=== PATIENT | female | born 2005 | race Caucasian/White ===

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

== ENCOUNTER → 2023-08-29 | Emergency (ER) | payer OTHER ==
[~2023-08-29] MED LIST: ONDANSETRON 4 MG (ODT) TAB ONE
--- OUTSIDE RECORDS SUMMARY | 2023-08-29 08:35 | XMS REPORT | Continuity of Care Document ---
Author Name Unknown Address [address] [facility] [place] [id number] [facility] thconnect Address [address] [facility] [address] [place] [address] Care Team Providers Care Concessions Manager Name Role Phone PCP, PATIENT DOES NOT HAVE A Primary Care Physic SLY Randall Attending Clinician UnavailSLY Wilhelm Attending Clinician UnavailMARTHA Cade Attending Clinician Unavailable BELIA OLIVEIRA Attending Clinician Unavailable LISSETT CANALES Attending Clinician Unavailable KILEY DYSON Attending Clinician Unavail Belia Golden MD Attending Clinician [phone] Doctor Unassigned, [place] Attending Clinician U norma Canales MD, Lissett Payne Attending Clinician [phone] Darlin De Los Santos MD Attending Clinician [phone] Martha Borjas PA-C Attending Clinician [phone] Kiley Baird Attending Clinician + Ultrasound, [facility] Attending Clinician Unavailmarj Elkins MD, Norman F Attending Clinician [phone], [facility] Attending Clinician Unavailab Ranjan LARIOS, Bellamy Attending Clinician + LISSETT CANALES Admitting Clinician Unavailable DARLIN DE LOS SANTOS Admitting Clinician Kristian Canales MD, Lissett Payne Admitting Clinician [phone] Darlin De Los Santos MD Admitting Clinician [phone] Payers Payer Name Policy Type Policy Number Effective Date Expirati on Date Source [employer] MEDICA[employer] [id number] 2019 00:00:00 [facility] [id number] 2016 00:00:00 Problems Condition Name Condition Details Condition Category Status Onset Date Resolution Date Last Treatment Date Treating Clinician Comments Source Normal labor Normal labor Disease Active 12-02 00:00: 00 [facility] 37 weeks gestation of 37 weeks gestation of Disease Active 12-02 00:00: 00 [facility] Liveborn infant, of leyva , born in hospital by vaginal delivery Liveborn , of leyva , born in hospital by vaginal delivery Disease Active 12-02 00:00: 00 [facility] Susceptibl e to varicella (non-immun e), currently Susceptibl e to varicella (non-immun e), currently Disease Active 2018-06 00:00: 00 [facility] Nausea and vomiting during Nausea and vomiting during Disease Active 2018-06 00:00: 00 [facility] Supervisio n of high-risk with insufficie nt care Supervisio n of high-risk with insufficie nt care Disease Active 2018-06 00:00: 00 [facility] Encounter for supervisio n of high-risk of young primigravi da Encounter for supervisio n of high-risk of young primigravi da Disease Active 2018-06 00:00: 00 [facility] Allergies, Adverse Reactions, Alerts Allergy Name Allergy Type Status Severity Reaction(s) Onset Date Inactive Date Treating Clinician Comments Source NO KNOWN ALLERGIE S Drug Class Active [facility] Social History Social Habit Start Date Stop Date Quantity Comments Source ASSERTION 2019-04-02 00:00:00 [facility] Sex Assigned At [facility] Exposure to SARS-CoV-2 (event) Not sure [facility] Tobacco use and exposure 2020-06-03 00:00:00 2020-06-03 00:00:00 Never used [facility] Alcohol intake 2020-06-03 00:00:00 2020-06-03 00:00:00 Ex-drinker (finding) [facility] Smoking Status Start Date Stop Date Source Never smoker [facility] Medications Ordered Medication Name Filled Medication Name Start Date Stop Date Current Medication? Ordering Clinician Indication Dosage Frequency Signature (SIG) Comments Components Source etonogestre L (NEXPLANON) implant 68 mg 2019-06 23:30: 00 06-03 22:19 :00 No [id number] 68mg [facility] etonogestre L (NEXPLANON) implant 68 mg 2019-06 23:30: 00 06-03 22:19 :00 No [id number] 68mg 68 mg, Subdermal, ONCE NOW, 1 dose, [facility] 06/03/20 at 1730, Routine
Use approved by: [facility]UR MATCHER [facility] etonogestre L (NEXPLANON) implant 68 mg 2019-06 23:30: 00 06-03 22:19 :00 No [id number] 68mg [facility] etonogestre L (NEXPLANON) implant 68 mg 2019-06 23:30: 00 06-03 22:19 :00 No [id number] 68mg 68 mg, Subdermal, ONCE NOW, 1 dose, [facility] 06/03/20 at 1730, Routine
Use approved by: [facility] vit calc,iron,f olic ( VITAMIN ORAL) 2019-06 21:54: 55 06-03 00:00 :00 No Take by mouth. [facility] vit calc,iron,f olic ( VITAMIN ORAL) 2019-06 21:54: 55 06-03 00:00 :00 No Take by mouth. [facility] vit calc,iron,f olic ( VITAMIN ORAL) 12-04 22:15: 34 Yes Take by mouth. [facility] vit calc,iron,f olic ( VITAMIN ORAL) 12-04 22:15: 34 Yes Take by mouth. [facility] vit calc,iron,f olic ( VITAMIN ORAL) 12-04 22:15: 34 Yes Take by mouth. [facility] vit calc,iron,f olic ( VITAMIN ORAL) 12-04 22:15: 34 Yes Take by mouth. [facility] rho(D) immune globulin (RHOGAM) syringe 300 mcg 12-03 08:25: 20 Yes 300ug 300 mcg, Intramuscu lar, ONCE, For 1 dose, Conditiona l, Routine [facility] HYDROcodone -acetaminop hen (NORCO 5) 5-325 mg tablet 1 tablet 12-03 08:25: 16 Yes 1{tbl} 1 tablet, Oral, Q6HPRN, Starting Kia 12/04/19 at 0325, Until Discontinu ed, Routine, Pain (scale 7-10) [facility] ibuprofen (IBU) tablet 600 mg 12-03 08:25: 16 Yes 600mg 600 mg, Oral, Q6HPRN, Starting Kia 12/04/19 at 0325, Until Discontinu ed, Routine, Pain (scale 4-6) [facility] acetaminoph en (TYLENOL) tablet 650 mg 12-03 08:25: 16 Yes 650mg 650 mg, Oral, Q6HPRN, Starting Kia 12/04/19 at 0325, Until Discontinu ed, Routine, Pain (scale 1-3) [facility] diphenhydrA MINE (BENADRYL) tablet 25 mg 12-03 08:25: 16 Yes 25mg 25 mg, Oral, Q6HPRN, Starting Kia 12/04/19 at 0325, Until Discontinu ed, Routine, Sleep, Itching [facility] ondansetron (ZOFRAN (PF)) injection 4 mg 12-03 08:25: 16 Yes 4mg 4 mg, Slow IV Push, Q8HPRN, Starting Kia 12/04/19 at 0325, Until Discontinu ed, Routine, Nausea and Vomiting (N/V) [facility] simethicone (GAS RELIEF (SIMETHICON E)) chewable tablet 160 mg 12-03 08:25: 16 Yes 160mg 160 mg, Oral, PC+HSPRN, Starting Sun12/04/19 at 0325, Until Discontinu ed, Routine, Gas [facility] docusate calcium (SURFAK) capsule 240 mg 12-03 08:25: 16 Yes 240mg 240 mg, Oral, QDAILYPRN, Starting Sun12/04/19 at 0325, Until Discontinu ed, Routine, Constipati on [facility] magnesium hydroxide (MILK OF MAGNESIA) 400 mg/5 mL suspension 30 mL 12-03 08:25: 16 Yes 30mL 30 mL, Oral, QDAILYPRN, Starting Sun12/04/19 at 0325, Until Discontinu ed, Routine, Constipati on [facility] benzocaine- menthol (DERMOPLAST ) 20-0.5 % topical spray 12-03 08:25: 16 Yes Topical, PRN, Starting Sun12/04/19 at 0325, Until Discontinu ed, Routine, Perineum discomfort [facility] vitamin w/FA tablet 12-03 00:00: 00 Yes [id number] 102 1{tbl} Take 1 tablet by mouth daily. [facility] docusate calcium 240 mg capsule 12-03 00:00: 00 Yes [id number] 102 240mg Take 1 capsule by mouth once daily as needed for Constipati on. [facility] ferrous sulfate 325 mg (65 mg iron) tablet 12-03 00:00: 00 Yes [id number] 102 325mg Take 1 tablet by mouth 2 (two) times daily. [facility] ibuprofen 600 mg tablet 12-03 00:00: 00 Yes [id number] 102 600mg Take 1 tablet by mouth every 6 (six) hours as needed (Pain). Take with food or milk. [facility] vitamin w/FA tablet 12-03 00:00: 00 Yes [id number] 102 1{tbl} Take 1 tablet by mouth daily. [facility] docusate calcium 240 mg capsule 12-03 00:00: 00 Yes [id number] 102 240mg Take 1 capsule by mouth once daily as needed for Constipati on. [facility] ferrous sulfate 325 mg (65 mg iron) tablet 12-03 00:00: 00 Yes [id number] 102 325mg Take 1 tablet by mouth 2 (two) times daily. [facility] ibuprofen 600 mg tablet 12-03 00:00: 00 Yes [id number] 102 600mg Take 1 tablet by mouth every 6 (six) hours as needed (Pain). Take with food or milk. [facility] vitamin w/FA tablet 12-03 00:00: 00 Yes [id number] 102 1{tbl} Take 1 tablet by mouth daily. [facility] docusate calcium 240 mg capsule 12-03 00:00: 00 Yes [id number] 102 240mg Take 1 capsule by mouth once daily as needed for Constipati on. [facility] ferrous sulfate 325 mg (65 mg iron) tablet 12-03 00:00: 00 Yes [id number] 102 325mg Take 1 tablet by mouth 2 (two) times daily. [facility] ibuprofen 600 mg tablet 12-03 00:00: 00 Yes [id number] 102 600mg Take 1 tablet by mouth every 6 (six) hours as needed (Pain). Take with food or milk. [facility] ibuprofen 600 mg tablet 12-03 00:00: 00 Yes [id number] 102 600mg Take 1 tablet by mouth every 6 (six) hours as needed (Pain). Take with food or milk. [facility] ibuprofen 600 mg tablet 12-03 00:00: 00 Yes [id number] 102 600mg Take 1 tablet by mouth every 6 (six) hours as needed (Pain). Take with food or milk. [facility] vitamin w/FA tablet 12-03 00:00: 00 06-03 00:00 :00 No [id number] 102 1{tbl} Take 1 tablet by mouth daily. [facility] docusate calcium 240 mg capsule 12-03 00:00: 06-03 00:00 :00 No [id number] 102 240mg Take 1 capsule by mouth once daily as needed for Constipati on. [facility] ferrous sulfate 325 mg (65 mg iron) tablet 12-03 00:00: 06-03 00:00 :00 No [id number] 102 325mg Take 1 tablet by mouth 2 (two) times daily. [facility] vitamin w/FA tablet 12-03 00:00: 06-03 00:00 :00 No [id number] 102 1{tbl} Take 1 tablet by mouth daily. [facility] docusate calcium 240 mg capsule 12-03 00:00: 06-03 00:00 :00 No [id number] 102 240mg Take 1 capsule by mouth once daily as needed for Constipati on. [facility] ferrous sulfate 325 mg (65 mg iron) tablet 12-03 00:00: 00 06-03 00:00 :00 No [id number] 102 325mg Take 1 tablet by mouth 2 (two) times daily. [facility] LR 1000 mL + oxytocin 20 units IV Solution 12-02 23:00: 00 12-02 23:00 :00 No at 125 mL/hr, IV Infusion, ONCE, 1 dose, Sun12/03/19 at 1800, Routine [facility] lactated ringers IV infusion 500 mL 12-02 15:30: 00 12-02 14:45 :00 No 500mL at 999 mL/hr, 500 mL, IV Infusion, ONCE, 1 dose, Sun12/03/19 at 1030, Routine [facility] lactated ringers IV infusion 500 mL 12-02 14:22: 43 12-02 15:45 :00 No 500mL at 999 mL/hr, 500 mL, IV Infusion, PRN - SEE INSTRUCTIO NS, 1 dose, Starting Sun12/03/19 at 0922, Until Discontinu ed, Routine [facility] LR 1000 mL + oxytocin 20 units IV Solution 12-02 12:53: 34 12-03 08:25 :21 No 2mU/min at 6-120 mL/hr, IV Infusion, TITRATE, Starting Sun12/03/19 at 0753, Until Kia 12/04/19 at 0325, ALYSHA [facility] vit calc,iron,f olic ( VITAMIN ORAL) 11-28 10:47: 48 Yes Take by mouth. [facility] terbutaline (BRETHINE) injection 0.25 mg 11-28 09:20: 00 11-28 09:24 :00 No .25mg 0.25 mg, Subcutaneo us, ONCE, 1 dose, 11/29/19 at 0430, Routine [facility] proMETHazin e (PHENERGAN) injection 25 mg 11-28 08:30: 00 11-28 07:34 :00 No 25mg 25 mg, Intramuscu lar, ONCE, 1 dose, 11/29/19 at 0330, Routine [facility] terbutaline (BRETHINE) injection 0.25 mg 11-28 08:00: 00 11-28 08:19 :00 No .25mg 0.25 mg, Subcutaneo us, ONCE, 1 dose, 11/29/19 at 0300, Routine [facility] terbutaline (BRETHINE) injection 0.25 mg 11-28 07:30: 00 11-28 07:33 :00 No .25mg 0.25 mg, Subcutaneo us, ONCE, 1 dose, 11/29/19 at 0230, Routine [facility] meperidine (DEMEROL) injection 50 mg 11-28 07:30: 00 11-28 07:40 :00 No 50mg 50 mg, Intramuscu lar, ONCE, 1 dose, 11/29/19 at 0230, Routine
Enter indication for use: [facility] vit calc,iron,f olic ( VITAMIN ORAL) 10-12 16:14: 50 Yes Take by mouth. [facility] vit calc,iron,f olic ( VITAMIN ORAL) 10-12 16:14: 50 Yes Take by mouth. [facility] vit calc,iron,f olic ( VITAMIN ORAL) 10-12 16:14: 50 Yes Take by mouth. [facility] vit calc,iron,f olic ( VITAMIN ORAL) 10-12 16:14: 50 Yes Take by mouth. [facility] vit calc,iron,f olic ( VITAMIN ORAL) 10-12 16:14: 50 Yes Take by mouth. [facility] vit calc,iron,f olic ( VITAMIN ORAL) 10-12 16:14: 50 Yes Take by mouth. [facility] vit calc,iron,f olic ( VITAMIN ORAL) 10-12 16:14: 50 Yes Take by mouth. [facility] vit calc,iron,f olic ( VITAMIN ORAL) 10-12 16:14: 50 Yes Take by mouth. [facility] proMETHazin e 25 mg tablet 2018-06 00:00: 00 Yes [id number] 25mg Take 1 tablet by mouth every 6 (six) hours as needed for Nausea and Vomiting (N/V). [facility] proMETHazin e 25 mg tablet 2018-06 00:00: 00 Yes [id number] 25mg Take 1 tablet by mouth every 6 (six) hours as needed for Nausea and Vomiting (N/V). [facility] proMETHazin e 25 mg tablet 2018-06 00:00: 00 Yes [id number] 25mg Take 1 tablet by mouth every 6 (six) hours as needed for Nausea and Vomiting (N/V). [facility] proMETHazin e 25 mg tablet 2018-06 00:00: 00 Yes [id number] 25mg Take 1 tablet by mouth every 6 (six) hours as needed for Nausea and Vomiting (N/V). [facility] proMETHazin e 25 mg tablet 2018-06 00:00: 00 Yes [id number] 25mg Take 1 tablet by mouth every 6 (six) hours as needed for Nausea and Vomiting (N/V). [facility] proMETHazin e 25 mg tablet 2018-06 00:00: 00 Yes [id number] 25mg Take 1 tablet by mouth every 6 (six) hours as needed for Nausea and Vomiting (N/V). [facility] proMETHazin e 25 mg tablet 2018-06 00:00: 00 Yes [id number] 25mg Take 1 tablet by mouth every 6 (six) hours as needed for Nausea and Vomiting (N/V). [facility] proMETHazin e 25 mg tablet 2018-06 00:00: 00 Yes [id number] 25mg Take 1 tablet by mouth every 6 (six) hours as needed for Nausea and Vomiting (N/V). [facility] proMETHazin e 25 mg tablet 2018-06 00:00: 00 Yes [id number] 25mg Take 1 tablet by mouth every 6 (six) hours as needed for Nausea and Vomiting (N/V). [facility] proMETHazin e 25 mg tablet 2018-06 00:00: 00 Yes [id number] 25mg Take 1 tablet by mouth every 6 (six) hours as needed for Nausea and Vomiting (N/V). [facility] proMETHazin e 25 mg tablet 2018-06 00:00: 00 Yes [id number] 25mg Take 1 tablet by mouth every 6 (six) hours as needed for Nausea and Vomiting (N/V). [facility] proMETHazin e 25 mg tablet 2018-06 00:00: 00 Yes [id number] 25mg Take 1 tablet by mouth every 6 (six) hours as needed for Nausea and Vomiting (N/V). [facility] proMETHazin e 25 mg tablet 2018-06 00:00: 00 Yes [id number] 25mg Take 1 tablet by mouth every 6 (six) hours as needed for Nausea and Vomiting (N/V). [facility] proMETHazin e 25 mg tablet 2018-06 00:00: 00 Yes [id number] 25mg Take 1 tablet by mouth every 6 (six) hours as needed for Nausea and Vomiting (N/V). [facility] proMETHazin e 25 mg tablet 2018-06 00:00: 00 Yes [id number] 25mg Take 1 tablet by mouth every 6 (six) hours as needed for Nausea and Vomiting (N/V). [facility] proMETHazin e 25 mg tablet 2018-06 00:00: 00 Yes [id number] 25mg Take 1 tablet by mouth every 6 (six) hours as needed for Nausea and Vomiting (N/V). [facility] proMETHazin e 25 mg tablet 2018-06 00:00: 00 Yes [id number] 25mg Take 1 tablet by mouth every 6 (six) hours as needed for Nausea and Vomiting (N/V). [facility] proMETHazin e 25 mg tablet 2018-06 00:00: 00 Yes [id number] 25mg Take 1 tablet by mouth every 6 (six) hours as needed for Nausea and Vomiting (N/V). [facility] proMETHazin e 25 mg tablet 2018-06 00:00: 00 12-03 00:00 :00 No [id number] 25mg Take 1 tablet by mouth every 6 (six) hours as needed for Nausea and Vomiting (N/V). [facility] NAPROXEN 375 mg tablet 2017-06 00:00: 00 Yes TAKE 1 TABLET BY MOUTH TWICE A DAY WITH MEALS [facility] NAPROXEN 375 mg tablet 2017-06 00:00: 00 Yes TAKE 1 TABLET BY MOUTH TWICE A DAY WITH MEALS [facility] NAPROXEN 375 mg tablet 2017-06 00:00: 00 Yes TAKE 1 TABLET BY MOUTH TWICE A DAY WITH MEALS [facility] NAPROXEN 375 mg tablet 2017-06 00:00: 00 Yes TAKE 1 TABLET BY MOUTH TWICE A DAY WITH MEALS [facility] NAPROXEN 375 mg tablet 2017-06 00:00: 00 Yes TAKE 1 TABLET BY MOUTH TWICE A DAY WITH MEALS [facility] NAPROXEN 375 mg tablet 2017-06 00:00: 00 Yes TAKE 1 TABLET BY MOUTH TWICE A DAY WITH MEALS [facility] NAPROXEN 375 mg tablet 2017-06 00:00: 00 Yes TAKE 1 TABLET BY MOUTH TWICE A DAY WITH MEALS [facility] NAPROXEN 375 mg tablet 2017-06 00:00: 00 Yes TAKE 1 TABLET BY MOUTH TWICE A DAY WITH MEALS [facility] NAPROXEN 375 mg tablet 2017-06 00:00: 00 Yes TAKE 1 TABLET BY MOUTH TWICE A DAY WITH MEALS [facility] NAPROXEN 375 mg tablet 2017-06 00:00: 00 10-12 00:00 :00 No TAKE 1 TABLET BY MOUTH TWICE A DAY WITH MEALS [facility] Vital Signs Vital Name Observation Time Observation Value Comments S john Systolic blood pressure 2020-06-03 21:31:00 118 mm[Hg] [facility] Diastolic blood pressure 2020-06-03 21:31:00 67 mm[Hg] [facility] Heart rate 2020-06-03 21:31:00 101 /min [facility] Body temperature 2020-06-03 21:31:00 36.83 Rachna [facility] Respiratory rate 2020-06-03 21:31:00 16 /min [facility] Body height 2020-06-03 21:31:00 160 cm [facility] Body weight 2020-06-03 21:31:00 60.691 kg [facility] BMI 2020-06-03 21:31:00 23.70 kg/m2 [facility] Heart rate 2019-12-05 13:00:00 57 /min [facility] Body temperature 2019-12-05 13:00:00 36.72 Rachna [facility] Respiratory rate 2019-12-05 13:00:00 16 /min [facility] Oxygen saturation in Arterial blood by Pulse oximetry 2019-12-05 13:00:00 100 /min [facility] Systolic blood pressure 2019-12-05 05:00:00 106 mm[Hg] [facility] Diastolic blood pressure 2019-12-05 05:00:00 60 mm[Hg] [facility] Body height 2019-12-03 10:45:00 160 cm [facility] Body weight 2019-12-03 10:45:00 68.493 kg [facility] BMI 2019-12-03 10:45:00 26.75 kg/m2 [facility] Heart rate 2019-11-29 10:15:00 105 /min [facility] Systolic blood pressure 2019-11-29 10:00:00 118 mm[Hg] [facility] Diastolic blood pressure 2019-11-29 10:00:00 62 mm[Hg] [facility] Oxygen saturation in Arterial blood by Pulse oximetry 2019-11-29 09:45:00 100 /min [facility] Body temperature 2019-11-29 07:04:00 36.67 Rachna [facility] Respiratory rate 2019-11-29 07:04:00 18 /min [facility] Body height 2019-11-29 07:04:00 160 cm [facility] Body weight 2019-11-29 07:04:00 68.402 kg [facility] BMI 2019-11-29 07:04:00 26.71 kg/m2 [facility] Systolic blood pressure 2019-11-20 16:30:00 111 mm[Hg] [facility] Diastolic blood pressure 2019-11-20 16:30:00 62 mm[Hg] [facility] Heart rate 2019-11-20 16:30:00 99 /min [facility] Body temperature 2019-11-20 16:30:00 36.72 Rachna [facility] Respiratory rate 2019-11-20 16:30:00 18 /min [facility] Body height 2019-11-20 16:30:00 160 cm [facility] Body weight 2019-11-20 16:30:00 66.679 kg [facility] BMI 2019-11-20 16:30:00 26.04 kg/m2 [facility] Systolic blood pressure 2019-10-13 16:11:00 107 mm[Hg] [facility] Diastolic blood pressure 2019-10-13 16:11:00 68 mm[Hg] [facility] Heart rate 2019-10-13 16:11:00 81 /min Un[facility] Body temperature 2019-10-13 16:11:00 36.89 Rachna [facility] Respiratory rate 2019-10-13 16:11:00 18 /min [facility] Body height 2019-10-13 16:11:00 160 cm [facility] Body weight 2019-10-13 16:11:00 63.957 kg [facility] BMI 2019-10-13 16:11:00 24.98 kg/m2 [facility] Systolic blood pressure 2019-09-30 15:58:00 98 mm[Hg] [facility] Diastolic blood pressure 2019-09-30 15:58:00 65 mm[Hg] [facility] Heart rate 2019-09-30 15:58:00 80 /min [facility] Body temperature 2019-09-30 15:58:00 36.44 Rachna [facility] Respiratory rate 2019-09-30 15:58:00 16 /min [facility] Body height 2019-09-30 15:58:00 160 cm [facility] Body weight 2019-09-30 15:58:00 63.107 kg [facility] BMI 2019-09-30 15:58:00 24.64 kg/m2 [facility] Systolic blood pressure 2019-09-16 15:53:00 129 mm[Hg] [facility] Diastolic blood pressure 2019-09-16 15:53:00 67 mm[Hg] [facility] Heart rate 2019-09-16 15:53:00 76 /min [facility] Body temperature 2019-09-16 15:53:00 36.5 Rachna [facility] Respiratory rate 2019-09-16 15:53:00 16 /min [facility] Body height 2019-09-16 15:53:00 160 cm [facility] Body weight 2019-09-16 15:53:00 63.22 kg [facility] BMI 2019-09-16 15:53:00 24.69 kg/m2 [facility] Systolic blood pressure 2019-08-26 17:00:00 114 mm[Hg] [facility] Diastolic blood pressure 2019-08-26 17:00:00 59 mm[Hg] [facility] Heart rate 2019-08-26 17:00:00 107 /[facility] Body temperature 2019-08-26 17:00:00 36.28 Rachna [facility] Respiratory rate 2019-08-26 17:00:00 16 /min [facility] Body height 2019-08-26 17:00:00 160 cm [facility] Body weight 2019-08-26 17:00:00 59.194 kg [facility] BMI 2019-08-26 17:00:00 23.12 kg/m2 [facility] Systolic blood pressure 2019-07-29 22:01:00 102 mm[Hg] [place] [facility] Diastolic blood pressure 2019-07-29 22:01:00 64 mm[Hg] [place] [facility] Heart rate 2019-07-29 22:01:00 73 /min [facility] Body temperature 2019-07-29 22:01:00 36.17 Rachna [facility] Respiratory rate 2019-07-29 22:01:00 16 /min [facility] Body height 2019-07-29 22:01:00 160 cm [facility] Body weight 2019-07-29 22:01:00 58.684 kg [facility] BMI 2019-07-29 22:01:00 22.92 kg/m2 [facility] Procedures Procedure Date / Time Performed Performing Clinician Source POCT TEST 2020-06-03 21:22:00 AdumBelia [facility] ASSIGNMENT OF BENEFITS 2020-06-03 21:05:52 Docto r Unassigned, [place] [facility] CBC WITH DIFFERENTIAL 2019-12-04 09:27:00 Lissett Canales [facility] VENOUS CORD GAS 2019-12-03 22:51:00 Lissett Canales [facility] HB ABO GROUPING 2019-12-03 13:45:00 Lissett Canales [facility] RHO (D) IMMUNE GLOBULIN 2019-12-03 13:45:00 Lissett Canales [facility] CBC WITH DIFFERENTIAL 2019-12-03 13:38:00 Lissett Canales [facility] HEPATITIS B SURFACE ANTIGEN 2019-12-03 13:38:00 Trever Lissett Payne [facility] ADC OR AFSHAN ONLY - RPR 2019-12-03 13:38:00 Trever Lissett Elmer [facility] HIV 1/2 AG-AB WITH REFLEX 2019-12-03 13:38:00 CanalesLissett [facility] ASSIGNMENT OF BENEFITS 2019-12-03 10:27:24 Docto r Unassigned, [place] [facility] NOTICE OF PRIVACY PRACTICES 2019-12-03 10:23:31 Doctor Unassigned, [place] [facility] CONSENT/REFUSAL FOR DIAGNOSIS AND TREATMENT 2019-12-03 10:23:16 Doctor Unassigned, [place] [facility] ASSIGNMENT OF BENEFITS 2019-11-29 06:47:19 Docto r Unassigned, [place] [facility] CONSENT/REFUSAL FOR DIAGNOSIS AND TREATMENT 2019-11-29 06:47:04 Doctor Unassigned, [place] [facility] NOTICE OF PRIVACY PRACTICES 2019-11-29 06:46:46 Doctor Unassigned, [place] [facility] DME/SUPPLY JUSTIFICATION 2019-11-25 05:01:00 Doc tor Unassigned, [place] [facility] POCT URINALYSIS W/O SPECIFIC GRAVITY 2019-11-20 00:00:00 Martha Borjas [facility] DME/SUPPLY JUSTIFICATION 2019-10-21 05:01:00 Doc tor Unassigned, [place] [facility] POCT URINALYSIS W/O SPECIFIC GRAVITY 2019-10-13 00:00:00 Trever Lissett Elmer [facility] TDAP (ADACEL) IMMUNIZATION 2019-09-30 16:20:58 Kiley Dyson [facility] POCT URINALYSIS 2019-09-30 16:02:00 Kiley Dyson [facility] SECOND AND THIRD TRIMESTER ULTRASOUND 2019-09-17 15:28:00 Kiley Dyson [facility] POCT URINALYSIS 2019-09-16 15:58:00 Kiley Dyson [facility] POCT URINALYSIS 2019-08-26 18:01:00 Kiley Dyson [facility] POCT URINALYSIS 2019-07-29 22:03:00 Kiley Dyson [facility] Encounters Start Date/Time End Date/Time Encounter Type Admission Type Attending Clinicians Care Facility Care Department Encounter ID Source 2021-04-22 00:17:49 Outpatient P COMB YANDY [id number] [facility] 2021-04-21 23:49:08 Outpatient P COMB YANDY [id number] [facility] 2022-12-07 09:00:00 2022-12-07 09:00:00 Outpatient R SLY CISNEROS CHERYAL [facility] [id number] [facility] 2022-11-23 15:00:00 2022-11-23 15:00:00 Outpatient R SLY CISNEROS CHERYAL [facility] [id number] [facility] 2021-10-26 15:30:00 2021-10-26 15:30:00 Outpatient R MARTHA BORJAS [facility] [id number] [facility] 2021-09-30 15:00:00 2021-09-30 15:00:00 Outpatient R BELIA OLIVEIRA [facility] [id number] [facility] 2021-08-08 14:30:00 2021-08-08 14:30:00 Outpatient R MARTHA BORJAS [facility] [id number] [facility] 2021-04-18 15:00:00 2021-04-18 15:00:00 Outpatient R LISSETT CANALES [facility] [id number] [facility] 2021-02-16 09:30:00 2021-02-16 09:30:00 Outpatient R KILEY DYSON [facility] [id number] [facility] 2020-06-03 15:06:22 2020-06-03 16:06:02 Office Visit Belia Oliveira [facility] 1.2.840.114 350.1.13.10 4.2.7.2.[id number] [facility] 2020-06-03 15:30:00 2020-06-03 15:30:00 Outpatient R BELIA OLIVEIRA [facility] [id number] [facility] 2020-06-03 00:00:00 2020-06-03 00:00:00 Orders Only Doctor Unassigned, [place] [facility] 1.2.840.114 350.1.13.10 4.2.7.2.[id number] [facility] 2020-06-03 00:00:00 2020-06-03 00:00:00 Letter (Out) Doctor Unassigned, [place] [facility] 1.2.840.114 350.1.13.10 4.2.7.2.[id number] [facility] 2019-12-03 05:24:00 2019-12-05 17:00:00 Hospital Encounter Lissett Canales [facility] 1.2.840.114 350.1.13.10 4.2.7.2.[id number] [facility] 2019-12-04 16:00:00 2019-12-04 16:00:00 Outpatient R LISSETT CANALES [facility] [id number] [facility] 2019-11-29 01:47:00 2019-11-29 05:46:00 Hospital Encounter ChristopherpedritoDarlin [facility] 1.2.840.114 350.1.13.10 4.2.7.2.[id number] [facility] 2019-11-29 00:00:00 2019-11-29 00:00:00 Orders Only Doctor Unassigned, [place] [facility] 1.2.840.114 350.1.13.10 4.2.7.2.[id number] [facility] 2019-11-25 00:00:00 2019-11-25 00:00:00 Orders Only Doctor Unassigned, [place] [facility] 1.2.840.114 350.1.13.10 4.2.7.2.[id number] [facility] 2019-11-20 11:18:15 2019-11-20 11:51:32 Routine Visit Martha Borjas [facility] 1.2.840.114 350.1.13.10 4.2.7.2.[id number] [facility] 2019-11-20 11:30:00 2019-11-20 11:30:00 [facility]patient [facility] [id number] [facility] 2019-10-27 16:00:00 2019-10-27 16:00:00 [facility] [id number] [facility] 2019-10-27 10:06:13 2019-10-27 10:36:13 [facility].114 350.1.13.10 4.2.7.2.[id number] [facility] 2019-10-22 00:00:00 2019-10-22 00:00:00 Telephone Lissett Canales [facility] 1.2.840.114 350.1.13.10 4.2.7.2.[id number] [facility] 2019-10-21 00:00:00 2019-10-21 00:00:00 Orders Only Doctor Unassigned, [place] [facility] 1.2.840.114 350.1.13.10 4.2.7.2.[id number] [facility] 2019-10-20 00:00:00 2019-10-20 00:00:00 Telephone Lissett Canales [facility] 1.2.840.114 350.1.13.10 4.2.7.2.[id number] [facility] 2019-10-13 15:15:00 2019-10-13 15:15:00 Outpatient R KILEY DYSON [facility] [id number] [facility] 2019-10-13 13:45:00 2019-10-13 13:45:00 Outpatient R KILEY DYSON [facility] [id number] [facility] 2019-10-13 11:05:01 2019-10-13 11:24:53 Initial Visit Lissett Canales [facility] 1.2.840.114 350.1.13.10 4.2.7.2.[id number] [facility] 2019-10-13 11:00:00 2019-10-13 11:00:00 Outpatient R LISSETT CANALES [facility] [id number] [facility] 2019-10-13 00:00:00 2019-10-13 00:00:00 Telephone Kiley Dyson [facility] 1.2.840.114 350.1.13.10 4.2.7.2.[id number] [facility] 2019-09-30 10:46:03 2019-09-30 11:25:56 Routine Visit Kiley Dyson [facility] 1.2.840.114 350.1.13.10 4.2.7.2.[id number] [facility] 2019-09-30 10:45:00 2019-09-30 10:45:00 Outpatient R KILEY DYSON [facility] [id number] [facility] 2019-09-18 00:00:00 2019-09-18 00:00:00 Abstract Kiley Dyson [facility] CHILD [facility] 1.2840.114 350.1.13.10 4.2.7.2.[id number] [facility] 2019-09-17 09:56:05 2019-09-17 10:26:05 Senior Sales Operations Manager Visit Ultrasound, Norman Dowling [facility]ILD [facility] 1.0.114 350.1.13.10 4.2.7.2.[id number] [facility] 2019-09-17 10:00:00 2019-09-17 10:00:00 Outpatient P [facility] [id number] [facility] 2019-09-16 10:44:24 2019-09-16 11:22:05 Routine Visit Kiley Dyson [facility]ILD [facility] 1.0.114 350.1.13.10 4.2.7.2.[id number] [facility] 2019-09-16 10:45:00 2019-09-16 10:45:00 Outpatient R KILEY DYSON [facility] [id number] [facility] 2019-08-27 00:00:00 2019-08-27 00:00:00 Abstract Kiley Dyson [facility]ILD [facility] 1.0.114 350.1.13.10 4.2.7.2.[id number] [facility] 2019-08-26 13:54:11 2019-08-26 14:41:10 Senior Sales Operations Manager [facility] Kiley Dyson Gay [facility] 1.840.114 350.1.13.10 4.2.7.2.[id number] [facility] 2019-08-26 10:51:50 2019-08-26 11:16:28 Routine Visit Kiley Dyson Gay [facility]ILD [facility] 1..840.114 350.1.13.10 4.2.7.2.[id number] [facility] 2019-08-26 10:45:00 2019-08-26 10:45:00 Outpatient R KILEY DYSON [facility] [id number] [facility] 2019-07-29 15:51:59 2019-07-29 16:19:18 Routine Visit Kiley Dyson [facility]ILD [facility] 1..840.114 350.1.13.10 4.2.7.2.[id number] [facility] Results Test Description Test Time Test Comments Results Result Co mments Source [facility] [id number] 21:22:00* Test Item Value Reference Range Interpretation Comme nts POCT PREG (test code = 1605) Positive On board controls acceptable with C Line (test code = 3574) Yes POCT PREG LOT # (test code = 3575) POCT PREG TEST DATE (test code = 3576) DENA (test code = DENA) accurate developme nt and interpretation of all internal controlsRecent on 06/02/20 [facility] WITH [id number] 12:11:00* Test Item Value Reference Range Interpretation Comme nts WBC (test code = 6690-2) See_Comment H [Automated message] The system which generated this result transmitted reference range: 4.50 - 13.50 10*3/?L. The reference range was not used to interpret this result as normal/abnormal. RBC (test code = 789-8) See_Comment L [Automated message] The system which generated this result transmitted reference range: 4.10 - 5.10 10*6/?L. The reference range was not used to interpret this result as normal/abnormal. HGB (test code = 718-7) 11.4 g/dL 12-16 L HCT (test code = 4544-3) 32.6 % 36-45 L MCV (test code = 787-2) 92.1 fL 78-95 MCH (test code = 785-6) 32.2 pg 26-32 H MCHC (test code = 786-4) 35.0 g/dL 32-36 RDW-SD (test code = 59957-4) 40.6 fL 38.5-49 RDW-CV (test code = 788-0) 12.2 % 11.5-14 PLT (test code = 777-3) See_Comment [Automated message] The system which generated this result transmitted reference range: 135 - 361 10*3/?L. The reference range was not used to interpret this result as normal/abnormal. MPV (test code = 93175-6) 11.0 fL 9.4-13.3 NRBC/100 WBC (test code = 6997193815) See_Comment [Automated message] The system which generated this result transmitted reference range: 0.0 - 10.0 /100 WBCs. The reference range was not used to interpret this result as normal/abnormal. NRBC x10^3 (test code = 6112629508) <0.01 See_Comment [Automated message] The system which generated this result transmitted reference range: 10*3/?L. The reference range was not used to interpret this result as normal/abnormal. GRAN MAT (NEUT) % (test code = 770-8) 71.2 % IMM GRAN % (test code = 5110405921) 1.10 % LYMPH % (test code = 736-9) 19.6 % MONO % (test code = 5905-5) 7.1 % EOS % (test code = 713-8) 0.8 % BASO % (test code = 706-2) 0.2 % GRAN MAT x10^3(ANC) (test code = 8288657612) 10.06 10*3/uL 1.5-10.3 IMM GRAN x10^3 (test code = 3849888512) 0.16 10*3/uL 0-0.06 H LYMPH x10^3 (test code = 731-0) 2.77 10*3/uL 0.7-7.4 MONO x10^3 (test code = 742-7) 1.01 10*3/uL 0-0.5 H EOS x10^3 (test code = 711-2) 0.12 10*3/uL 0-0.4 BASO x10^3 (test code = 704-7) 0.03 10*3/uL 0-0.1 Lab Interpretation (test code = 75955-7) Abnormal [facility]) IMMUNE [id number] 09:15:54* Test Item Value Reference Range Interpretation Comme nts RHIG CANDIDATE? (test code = 5055) No- see comment Patient is not a candidate for RhIg- Patient is Rh Positive.Performed at [facility] Laboratory Services - [facility] Blood [address] [place] [address]Ucsr Free: [phone] No. [id number] [facility]AD OR AFSHAN ONLY - [id number] 04:13:00* Test Item Value Reference Range Interpretation Comme nts RPR (Qualitative) (test code = 45824-1) Nonreactive Nonreactive Lab Interpretation (test cod e = 00149-6) Normal [facility] Cord [id number] 23:13:00* Test Item Value Reference Range Interpretation Comme nts VENOUS BASE EXCESS, CORD (test code = 6749085356) mEq/L VENOUS PH, CORD (test code = 1525098417) 7.25-7.45 VENOUS PC02, CORD (test code = 4851742474) See_Comment [Automated messa ge] The system which generated this result transmitted reference range: 27 - 49 mmHg. The reference range was not used to interpret this result as normal/abnormal. VENOUS PO2, CORD (test code = 4899334255) See_Comment [Automated me ssage] The system which generated this result transmitted reference range: 17 - 41 mmHg. The reference range was not used to interpret this result as normal/abnormal. VENOUS BICARBONATE, CORD (test code = 4973571448) See_Comment [Automated messa ge] The system which generated this result transmitted reference range: 12 - 29 mEq/L. The reference range was not used to interpret this result as normal/abnormal. [facility] HospitalAr[facility]ial Cord [id number] 23:12:00* Test Item Value Reference Range Interpretation Comme nts BASE EXCESS, CORD (test code = 6368706615) mEq/L AC PH, CORD (BEAKER) (test code = 9948391966) 7.18-7.38 L PC02, CORD (test code = 4875013039) See_Comment [Automated messa ge] The system which generated this result transmitted reference range: 32 - 66 mmHg. The reference range was not used to interpret this result as normal/abnormal. PO2, CORD (test code = 2526291183) See_Comment H [Automated messa ge] The system which generated this result transmitted reference range: 10 - 30 mmHg. The reference range was not used to interpret this result as normal/abnormal. BICARBONATE, CORD (test code = 8414950258) See_Comment [Automated me ssage] The system which generated this result transmitted reference range: 17 - 27 mEq/L. The reference range was not used to interpret this result as normal/abnormal. Lab Interpretation (test code = 17774-6) Abnormal [facility] HospitalHepatitis B Surface [id number] 20:15:00 * Test Item Value Reference Range Interpretation Comme nts HBsAg Semi-Quantitative (dash t code = 5195-3) Negative Negative [facility]HIV 1/2 AG-AB WITH [id number] 15:37:00* Test Item Value Reference Range Interpretation Comme nts HIV Semi-quantitative (test code = 10520-0) Negative Negative DENA (test code = DENA) Non-reactive for HIV-1 antigen and HIV-1/HIV-2 antibodies. ?No laboratory evidence of HIV infection. ?Repeat in 2-4 weeks if acute HIV infection is suspected. [facility] HospitalType and Screen - ONCE [id number] 15:12:43 * Test Item Value Reference Range Interpretation Comme nts ABO & RH (test code = 20) O Positive Performed at [facility] Laboratory Services - [facility] Blood [address] [place], [place] [id number] Free: [phone] No. [id number] IAT (test code = 1185) Negative Performed at [facility] Laboratory [facility] - [facility] Blood [address] [place], [place] [id number] Free: [phone] No. [id number] [facility] WITH [id number] 14:18:00* Test Item Value Reference Range Interpretation Comme nts WBC (test code = 6690-2) See_Comment [Automated messa ge] The system which generated this result transmitted reference range: 4.50 - 13.50 10*3/?L. The reference range was not used to interpret this result as normal/abnormal. RBC (test code = 789-8) See_Comment L [Automated messa ge] The system which generated this result transmitted reference range: 4.10 - 5.10 10*6/?L. The reference range was not used to interpret this result as normal/abnormal. HGB (test code = 718-7) 11.8 g/dL 12-16 L HCT (test code = 4544-3) 32.7 % 36-45 L MCV (test code = 787-2) 90.6 fL 78-95 MCH (test code = 785-6) 32.7 pg 26-32 H MCHC (test code = 786-4) 36.1 g/dL 32-36 H RDW-SD (test code = 79750-8) 39.8 fL 38.5-49 RDW-CV (test code = 788-0) 12.3 % 11.5-14 PLT (test code = 777-3) See_Comment [Automated messa ge] The system which generated this result transmitted reference range: 135 - 361 10*3/?L. The reference range was not used to interpret this result as normal/abnormal. MPV (test code = 90411-0) 10.6 fL 9.4-13.3 NRBC/100 WBC (test code = 2788448205) See_Comment [Automated me ssage] The system which generated this result transmitted reference range: 0.0 - 10.0 /100 WBCs. The reference range was not used to interpret this result as normal/abnormal. NRBC x10^3 (test code = 7682695639) <0.01 See_Comment [Automated messa ge] The system which generated this result transmitted reference range: 10*3/?L. The reference range was not used to interpret this result as normal/abnormal. GRAN MAT (NEUT) % (test code = 770-8) 67.7 % IMM GRAN % (test code = 4747281498) 2.00 % LYMPH % (test code = 736-9) 23.0 % MONO % (test code = 5905-5) 6.0 % EOS % (test code = 713-8) 0.9 % BASO % (test code = 706-2) 0.4 % GRAN MAT x10^3(ANC) (test code = 1378054475) 7.56 10*3/uL 1.5-10.3 IMM GRAN x10^3 (test code = 9834900361) 0.22 10*3/uL 0-0.06 H LYMPH x10^3 (test code = 731-0) 2.57 10*3/uL 0.7-7.4 MONO x10^3 (test code = 742-7) 0.67 10*3/uL 0-0.5 H EOS x10^3 (test code = 711-2) 0.10 10*3/uL 0-0.4 BASO x10^3 (test code = 704-7) 0.04 10*3/uL 0-0.1 Lab Interpretation (test code = 33089-7) Abnormal [facility] URINALYSIS W/O SPECIFIC [id number] 16:37:00* Test Item Value Reference Range Interpretation Comme nts POCT PH U (test code = 3254) N/A 5-8 POCT U LEUK EST (test code = 3263) N/A Negative - Negative POCT U NIT (test code = 3262) N/A Negative - Negati ve POCT U PROT (test code = 3259) Negative Negative - Negat cyrus POCT U GLU (test code = 3256) Negative Negative - Negati ve POCT U KETONE (test code = 3258) N/A Negative - Neg ative POCT U BLD (test code = 3257) N/A Negative - Negati ve [facility] URINALYSIS W/O SPECIFIC [id number] 16:16:00* Test Item Value Reference Range Interpretation Comme nts POCT PH U (test code = 3254) N/A 5-8 POCT U LEUK EST (test code = 3263) N/A Negative - Negative POCT U NIT (test code = 3262) N/A Negative - Negati ve POCT U PROT (test code = 3259) Negative Negative - Negat cyrus POCT U GLU (test code = 3256) Negative Negative - Negati ve POCT U KETONE (test code = 3258) N/A Negative - Neg ative POCT U BLD (test code = 3257) N/A Negative - Negati ve [facility] URINALYSIS W SPECIFIC [id number] 16:02:00* Test Item Value Reference Range Interpretation Comme nts POCT U SP GRAV (test code = 3255) . 1.005-1.025 POCT PH U (test code = 3254) . 5-8 POCT U LEUK EST (test code = 3263) . Negative - N egative POCT U NIT (test code = 3262) . Negative - Negati ve POCT U PROT (test code = 3259) Trace Negative - Negat cyrus POCT U GLU (test code = 3256) Neg Negative - Negati ve POCT U KETONE (test code = 3258) . Negative - Neg ative POCT U UROBILI (test code = 3260) . 0.2-1 POCT U BILI (test code = 3261) . Negative - Negat cyrus POCT U BLD (test code = 3257) . Negative - Negati ve POCT U COLOR (test code = 3266) POCT U APPEAR (test code = 3267) [facility] URINALYSIS W SPECIFIC [id number] 15:58:00* Test Item Value Reference Range Interpretation Comme nts POCT U SP GRAV (test code = 3255) . 1.005-1.025 POCT PH U (test code = 3254) . 5-8 POCT U LEUK EST (test code = 3263) . Negative - N egative POCT U NIT (test code = 3262) . Negative - Negati ve POCT U PROT (test code = 3259) Trace Negative - Negat cyrus POCT U GLU (test code = 3256) Neg Negative - Negati ve POCT U KETONE (test code = 3258) . Negative - Neg ative POCT U UROBILI (test code = 3260) . 0.2-1 POCT U BILI (test code = 3261) . Negative - Negat cyrus POCT U BLD (test code = 3257) . Negative - Negati ve POCT U COLOR (test code = 3266) POCT U APPEAR (test code = 3267) [facility] URINALYSIS W SPECIFIC [id number] 18:01:00* Test Item Value Reference Range Interpretation Comme nts POCT U SP GRAV (test code = 3255) . 1.005-1.025 POCT PH U (test code = 3254) . 5-8 POCT U LEUK EST (test code = 3263) . Negative - N egative POCT U NIT (test code = 3262) . Negative - Negati ve POCT U PROT (test code = 3259) Trace Negative - Negat cyrus POCT U GLU (test code = 3256) Neg Negative - Negati ve POCT U KETONE (test code = 3258) . Negative - Neg ative POCT U UROBILI (test code = 3260) . 0.2-1 POCT U BILI (test code = 3261) . Negative - Negat cyrus POCT U BLD (test code = 3257) . Negative - Negati ve POCT U COLOR (test code = 3266) POCT U APPEAR (test code = 3267) [facility] URINALYSIS W SPECIFIC [id number] 18:01:00* Test Item Value Reference Range Interpretation Comme nts POCT U SP GRAV (test code = 3255) . 1.005-1.025 POCT PH U (test code = 3254) . 5-8 POCT U LEUK EST (test code = 3263) . Negative - N egative POCT U NIT (test code = 3262) . Negative - Negati ve POCT U PROT (test code = 3259) Trace Negative - Negat cyrus POCT U GLU (test code = 3256) Neg Negative - Negati ve POCT U KETONE (test code = 3258) . Negative - Neg ative POCT U UROBILI (test code = 3260) . 0.2-1 POCT U BILI (test code = 3261) . Negative - Negat cyrus POCT U BLD (test code = 3257) . Negative - Negati ve POCT U COLOR (test code = 3266) POCT U APPEAR (test code = 3267) [facility]CIFIC [id number] 22:03:00* Test Item Value Reference Range Interpretation Comme nts POCT U SP GRAV (test code = 3255) . 1.005-1.025 POCT PH U (test code = 3254) . 5-8 POCT U LEUK EST (test code = 3263) . Negative - N egative POCT U NIT (test code = 3262) . Negative - Negati ve POCT U PROT (test code = 3259) Trace Negative - Negat cyrus POCT U GLU (test code = 3256) Neg Negative - Negati ve POCT U KETONE (test code = 3258) . Negative - Neg ative POCT U UROBILI (test code = 3260) . 0.2-1 POCT U BILI (test code = 3261) . Negative - Negat cyrus POCT U BLD (test code = 3257) . Negative - Negati ve POCT U COLOR (test code = 3266) POCT U APPEAR (test code = 3267) [facility]
[2023-08-29 09:57] LABS: SARS-CoV-2 Antigen Rapid Res Negative (Negative)
--- NOTE | 2023-08-29 11:12 | ER ---
Nurse's Notes [facility] Name: Shabnam Rodriguez Age: 18 yrs Sex: Female : 2005 Arrival Date: 08/29/2023 Time: 08:30 Bed DX1 Private MD: Diagnosis: Influenza B;Myalgia Presentation: 08/28 08:39 Chief complaint: Patient states: MALAISE, NAUSEA AND VOMITING SINCE LAST PM. bp Coronavirus screen: At this time, the client does not indicate any symptoms associated with coronavirus-19. Ebola Screen: No symptoms or risks identified at this time. Initial Sepsis Screen: Does the patient meet any 2 criteria? No. Patient's initial sepsis screen is negative. Does the patient have a suspected source of infection? No. Patient's initial sepsis screen is negative. Risk Assessment: Do you want to hurt yourself or someone else? Patient reports no desire to harm self or others. Onset of symptoms is unknown. 08:39 Method Of Arrival: Ambulatory bp 08:39 Acuity: DUNCAN 3 bp Triage Assessment: 08:40 General: Appears in no apparent distress. uncomfortable, Behavior is calm, cooperative, bp appropriate for age. Pain: Complains of pain in abdomen. GI: Reports nausea, vomiting. Historical: - Allergies: 08:40 No Known Allergies; bp - Home Meds: 08:40 None [Active]; bp - PMHx: 08:40 None; bp - Immunization history:: Adult Immunizations up to date. - Social history:: Smoking status: Patient denies any tobacco usage or history of. Screenin:00 [facility] ED Fall Risk Assessment (Adult) History of falling in the last 3 months, kb3 including since admission No falls in past 3 months (0 pts) Confusion or Disorientation No (0 pts) Intoxicated or Sedated No (0 pts) Impaired Gait Yes (1 pt) Mobility Assist Device Used No (0 pt) Altered Elimination No (0 pt) Score/Fall Risk Level 0 - 2 = Low Risk Oriented to surroundings. Abuse screen: Denies threats or abuse. Denies injuries from another. Nutritional screening: No deficits noted. Tuberculosis screening: No symptoms or risk factors identified. Assessment: 11:00 General: Appears in no apparent distress. Behavior is calm, cooperative. Pain: kb3 Complains of pain in head, chest, abdomen, right arm, left arm, right leg and left leg Pain does not radiate. Pain currently is 7 out of 10 on a pain scale. Quality of pain is described as aching, Pain began 1 day ago. Is continuous, Also complains of nausea. Respiratory: Denies cough, shortness of breath. GI: Bowel sounds present X 4 quads. Abd is soft and non tender Reports nausea. Vital Signs: 08:39 BP 116 / 72; Pulse 77; Resp 16; Temp 97.1; Pulse Ox 100% ; Weight 56.7 kg; Height 5 ft. bp 3 in. ; 11:30 BP 110 / 68; Pulse 75; Resp 18; Temp 98.8; Pulse Ox 100% ; Pain 7/10; kb3 08:39 Body Mass Index 22.14 (56.70 kg, 160.02 cm) bp 11:30 Pain Scale: Adult kb3 ED Course: 08:33 Patient arrived in ED. mg5 08:35 Ulises Klein DO is Attending Physician. ms3 08:40 Triage completed. bp 08:40 Arm band placed on. bp 09:14 Rico Mcduffie, RN is Primary Nurse. bp 09:14 SARS RAPID Sent. bp 09:14 Flu Sent. bp 11:00 Patient has correct armband on for positive identification. Provided Education on: Flu kb3 diagnosis and treatment. 11:00 No provider procedures requiring assistance completed. Patient admitted, IV remains in kb3 place. 11:11 Blas Kovacs DO is Referral Physician. ms3 Administered Medications: 09:14 Drug: Ondansetron PO 4 mg PO once Route: PO; bp 11:30 Follow up: Response: Nausea is decreased kb3 Medication: 11:00 VIS not applicable for this client. kb3 Outcome: 11:12 Discharge ordered by MD. ms3 11:36 Discharged to home ambulatory, kb3 11:36 Condition: stable 11:36 Discharge instructions given to patient, Instructed on discharge instructions, follow up and referral plans. medication usage, Demonstrated understanding of instructions, follow-up care, medications, Prescriptions given X 1, 11:38 Patient left the ED. kb3 Signatures: Rico Mcduffie RN RN bp Ulises Klein DO DO ms3 Joie Sky RN RN kb3 Emilia Sethi mg5
--- NOTE | 2023-08-29 11:13 | EDPHYS ---
Physician Documentation [facility] Name: Shabnam Rodriguez Age: 18 yrs Sex: Female : 2005 Arrival Date: 08/29/2023 Time: 08:30 Bed DX1 Private MD: ED Physician Ulises Klein HPI: 08/28 11:12 This 18 yrs old Female presents to ER via Ambulatory with complaints of Left Flank ms3 pain, vomiting. 11:12 18-year-old female with no past medical history presents to the emergency department ms3 for nausea and vomiting that began last night. Patient states her discomfort is 7/10. Patient denies any alleviating or inciting factors. Patient endorses chills, body aches and denies fever.. Historical: - Allergies: 08:40 No Known Allergies; bp - Home Meds: 08:40 None [Active]; bp - PMHx: 08:40 None; bp - Immunization history:: Adult Immunizations up to date. - Social history:: Smoking status: Patient denies any tobacco usage or history of. ROS: 11:12 Cardiovascular: Negative for chest pain, and palpitations. Respiratory: Negative for ms3 shortness of breath, cough, wheezing, and pleuritic chest pain, Skin: Negative for injury, rash, and discoloration, 11:12 Constitutional: Positive for body aches, chills, Negative for fever, 11:12 Abdomen/GI: Positive for nausea and vomiting, Exam: 11:12 Constitutional: This is a well developed, well nourished patient who is awake, alert, ms3 and in no acute distress. Head/Face: Normocephalic, atraumatic. Neck: Trachea midline, no cervical lymphadenopathy. Supple, full range of motion without nuchal rigidity, or vertebral point tenderness. No Meningismus. Chest/axilla: Normal chest wall appearance and motion. Nontender with no deformity. Cardiovascular: Regular rate and rhythm with a normal S1 and S2. No gallops, murmurs, or rubs. Normal PMI, no JVD. No pulse deficits. Respiratory: Lungs have equal breath sounds bilaterally, clear to auscultation and percussion. No rales, rhonchi or wheezes noted. No increased work of breathing, no retractions or nasal flaring. Abdomen/GI: Soft, non-tender, with normal bowel sounds. No distension or tympany. No guarding or rebound. No evidence of tenderness throughout. Skin: Warm, dry with normal turgor. Normal color with no rashes, no lesions, and no evidence of cellulitis. Vital Signs: 08:39 BP 116 / 72; Pulse 77; Resp 16; Temp 97.1; Pulse Ox 100% ; Weight 56.7 kg; Height 5 ft. bp 3 in. ; 11:30 BP 110 / 68; Pulse 75; Resp 18; Temp 98.8; Pulse Ox 100% ; Pain 7/10; kb3 08:39 Body Mass Index 22.14 (56.70 kg, 160.02 cm) bp 11:30 Pain Scale: Adult kb3 MDM: 08:53 Patient medically screened. ms3 11:12 Differential diagnosis: viral gastroenteritis, COVID versus flu. Data reviewed: vital ms3 signs, nurses notes, and as a result, I will discharge patient. I considered the following discharge prescriptions or medication management in the emergency department Medications were administered in the Emergency Department. See MAR. Counseling: I had a detailed discussion with the patient and/or guardian regarding the historical points, exam findings, and any diagnostic results supporting the discharge/admit diagnosis, lab results, the need for outpatient follow up, to return to the emergency department if symptoms worsen or persist or if there are any questions or concerns that arise at home. ED course: Discussed labs with patient. Patient to follow-up with primary care physician 2 to 3 days. Patient understands and agrees with plan. All questions were answered. Return precautions discussed include worsening symptoms, or any other concerns. On reevaluation patient tolerating p.o., alert and orient x 4, no apparent distress, nontoxic. 03 08:54 Order name: Flu; Complete Time: 11:06 ms3 08/28 08:54 Order name: SARS RAPID; Complete Time: 11:06 ms3 Administered Medications: 09:14 Drug: Ondansetron PO 4 mg PO once Route: PO; bp 11:30 Follow up: Response: Nausea is decreased kb3 Disposition Summary: 08/29/23 11:12 Discharge Ordered Notes: Location: Home ms3 Condition: Stable ms3 Diagnosis - Influenza B ms3 - Myalgia ms3 Followup: ms3 - With: KovacsBlas sky DO - When: 2 - 3 days - Reason: Recheck today's complaints Discharge Instructions: - Discharge Summary Sheet ms3 - Influenza, Adult ms3 Forms: - Medication Reconciliation Form ms3 - Thank You Letter ms3 - Antibiotic Education ms3 - Prescription Opioid Use ms3 - Patient Portal Instructions ms3 - Leadership Thank You Letter ms3 - Work release form kb3 Prescriptions: - Tamiflu 75 mg Oral capsule - take 1 tablet ORAL route every 12 hours for 5 days; 10 tablet; Refills: 0, ms3 Product Selection Permitted Signatures: Dispatcher [employer] Rico Munoz, RN RN Ulises Lujan DO DO ms3 Joie Sky RN kb3
[2023-08-29 11:46] VITALS: BP 110/68; TEMP 98.8; O2SAT 100
== END ==
LOC: ER 08:30
DX: J10.1 Influenza due to other identified influenza virus with other respiratory manifestations (principal); M79.10 Myalgia, unspecified site; Z11.52 Encounter for screening for COVID-19
CPT/HCPCS: 36415; 87804 ×2; 87811; Q0162; 99284

== ENCOUNTER 2024-04-25 03:32 | Emergency (ER) | payer OTHER, SELFPAY ==
--- OUTSIDE RECORDS SUMMARY | 2024-04-25 03:36 | XMS REPORT | Continuity of Care Document ---
Author Name Unknown Address [address] [facility] [address] [place] [address] [facility] Address [address] [facility] [place] [address] Care Team Providers Care Survey Rodman Name Role Phone Pcp, Patient Does Not Have A Primary Care Physic babita KILEY DYSON Attending Clinician Unavail able [facility] Unava ilable Kiley Baird Attending Clinician + [facility], [facility] Unava ilable Elyssa Keita CNM Attending Clinician [phone] ELYSSA KEITA Attending Clinician Unavaila sapphire NurseJose [facility] Attending Clini susie Unavailable AkinsiKiley Jesus Attending Clinician + BELIA OLIVEIRA Attending Clinician Unavailable SLY CISNEROS Attending Clinician UnavailSLY Wilhelm Attending Clinician UnavailMARTHA Cade Attending Clinician Unavailable LISSETT CANALES Attending Clinician Unavailable Belia Oliveira MD Attending Clinician [phone] Doctor Unassigned, [place] Attending Clinician U Lissett Martinez MD Attending Clinician [phone] Darlin De Los Santos MD Attending Clinician + [phone] Martha Borjas PA-C Attending Clinician [phone] Ultrasound, [facility] Attending Clinician Kristian Elkins MD, Norman F Attending Clinician [phone], [facility] Room Attending Clinician Ramonita Woodruff MD, Bellamy Attending Clinician + PARKER, LISSETT QUEZADA Admitting Clinician Unavailable DARLIN DE LOS SANTOS Admitting Clinician Kristian Canales MD, Lissett Quezada Admitting Clinician [phone] Darlin De Los Santos MD Admitting Clinician + [phone] Payers Payer Name Policy Type Policy Number Effective Date Expirati on Date Source [employer] MEDICAID [id number] 2019 00:00:00 [facility] [id number] 2023 00:00:00 [facility] [id number] 2016 00:00:00 Problems Condition Name Condition Details Condition Category Status Onset Date Resolution Date Last Treatment Date Treating Clinician Comments Source Need for HPV vaccinatio n Need for HPV vaccinatio n Disease Active 09-25 00:00: 00 [facility] Other general counseling and advice for contracept cyrus management Other general counseling and advice for contracept cyrus management Disease Active 09-25 00:00: 00 [facility] Breast pain in female Breast pain in female Disease Active 09-25 00:00: 00 [facility] Susceptibl e to varicella (non-immun e), currently Susceptibl e to varicella (non-immun e), currently Disease Active 2018-06 00:00: 00 [facility] Supervisio n of high-risk with insufficie nt care Supervisio n of high-risk with insufficie nt care Disease Active 2018-06 00:00: 00 [facility] Normal labor Normal labor Disease Resolve d 2019- 6-10 00:00: 00 2020-06-03 00:00:00 2020-06-03 16:18:15 [facility] 37 weeks gestation of 37 weeks gestation of Disease Resolve d 12-02 00:00: 00 2020-06-03 00:00:00 2020-06-03 16:18:20 [facility] Liveborn , of leyva , born in hospital by vaginal delivery Liveborn , of leyva , born in hospital by vaginal delivery Disease Resolve d 10 00:00: 00 2020-06-03 00:00:00 2020-06-03 16:18:17 [facility] Encounter for supervisio n of high-risk of young primigravi da Encounter for supervisio n of high-risk of young primigravi da Disease Resolve d 2018-06 0-30 00:00: 00 2020-06-03 00:00:00 2020-06-03 16:18:23 [facility] Nausea and vomiting during Nausea and vomiting during Disease Resolve d 2018-06 0-30 00:00: 00 2019-12-03 00:00:00 2019-12-03 07:49:34 [facility] Nausea and vomiting during Nausea and vomiting during Disease Resolve d 2018-06 0-30 00:00: 00 2019-12-03 00:00:00 2019-12-03 07:49:34 [facility] Allergies, Adverse Reactions, Alerts Allergy Name Allergy Type Status Severity Reaction(s) Onset Date Inactive Date Treating Clinician Comments Source NO KNOWN ALLERGIE S Drug Class Active [facility] Social History Social Habit Start Date Stop Date Quantity Comments Source ASSERTION 2019-04-02 00:00:00 [facility] Exposure to SARS-CoV-2 (event) [facility] sure [facility] Social function 2023-12-26 00:00:00 2023-12-26 00:00:00 [facility] Tobacco use and exposure 2023-09-26 00:00:00 2023-09-26 00:00:00 Smokeless tobacco non-user [facility] Alcoholic beverage intake 2023-09-26 00:00:00 2023-09-26 00:00:00 Ex-drinker (finding) [facility] Alcohol intake 2023-09-26 00:00:00 2023-09-26 00:00:00 Ex-drinker (finding) [facility] Sex assigned at 2003 00:00:00 2005 00:00:00 [facility] Smoking Status Start Date Stop Date Source Never smoked tobacco [facility] Medications Ordered Medication Name Filled Medication Name Start Date Stop Date Current Medication? Ordering Clinician Indication Dosage Frequency Signature (SIG) Comments Components Source medroxyPROG ESTERone (DEPO-PROVE RA) syringe 150 mg 10-03 16:30: 00 09-04 16:29 :00 No [id number] 150mg 150 mg, Intramuscu lar, N3SAESOR, 4 doses, First dose on Kia 10/04/23 at 1130, Last dose on Kia 06/12/24 at 1130, Routine [facility] etonogestre L (NEXPLANON) implant 68 mg 2019-06 23:30: 00 06-03 22:19 :00 No [id number] 68mg [facility] vit calc,iron,f olic ( VITAMIN ORAL) 2019-06 21:54: 55 06-03 00:00 :00 No Take by mouth. [facility] vit calc,iron,f olic ( VITAMIN ORAL) 12-04 22:15: 34 Yes Take by mouth. [facility] rho(D) immune globulin (RHOGAM) syringe 300 mcg 12-03 08:25: 20 Yes 300ug 300 mcg, Intramuscu lar, ONCE, For 1 dose, Conditiona l, Routine [facility] HYDROcodone -acetaminop hen (NORCO 5) 5-325 mg tablet 1 tablet 12-03 08:25: 16 Yes 1{tbl} 1 tablet, Oral, Q6HPRN, Starting Kia 12/04/19 at 0325, Until Discontinu ed, Routine, Pain (scale 7-10) [facility] ibuprofen (IBU) tablet 600 mg 12-03 08:25: 16 Yes 600mg 600 mg, Oral, Q6HPRN, Starting Kia 12/04/19 at 0325, Until Discontinu ed, Routine, Pain (scale 4-6) [facility] acetaminoph en (TYLENOL) tablet 650 mg 12-03 08:25: 16 Yes 650mg 650 mg, Oral, Q6HPRN, Starting Sun12/04/19 at 032, Until Discontinu ed, Routine, Pain (scale 1-3) [facility] diphenhydrA MINE (BENADRYL) tablet 25 mg 12-03 08:25: 16 Yes 25mg 25 mg, Oral, Q6HPRN, Starting Sun12/04/19 at 032, Until Discontinu ed, Routine, Sleep, Itching [facility] ondansetron (ZOFRAN (PF)) injection 4 mg 12-03 08:25: 16 Yes 4mg 4 mg, Slow IV Push, Q8HPRN, Starting Sun12/04/19 at 324, Until Discontinu ed, Routine, Nausea and Vomiting (N/V) [facility] simethicone (GAS RELIEF (SIMETHICON E)) chewable tablet 160 mg 12-03 08:25: 16 Yes 160mg 160 mg, Oral, PC+HSPRN, Starting Sun12/04/19 at 324, Until Discontinu ed, Routine, Gas [facility] docusate calcium (SURFAK) capsule 240 mg 12-03 08:25: 16 Yes 240mg 240 mg, Oral, QDAILYPRN, Starting Sun12/04/19 at 032, Until Discontinu ed, Routine, Constipati on [facility] magnesium hydroxide (MILK OF MAGNESIA) 400 mg/5 mL suspension 30 mL 12-03 08:25: 16 Yes 30mL 30 mL, Oral, QDAILYPRN, Starting Sun12/04/19 at 032, Until Discontinu ed, Routine, Constipati on [facility] benzocaine- menthol (DERMOPLAST ) 20-0.5 % topical spray 12-03 08:25: 16 Yes Topical, PRN, Starting Sun12/04/19 at 032, Until Discontinu ed, Routine, Perineum discomfort [facility] ibuprofen 600 mg tablet 12-03 00:00: 00 09-25 00:00 :00 No [id number] 102 600mg Take 1 tablet by mouth every 6 (six) hours as needed (Pain). Take with food or milk. [facility] vitamin w/FA tablet 12-03 00:00: 00 06-03 00:00 :00 No [id number] 102 1{tbl} Take 1 tablet by mouth daily. [facility] docusate calcium 240 mg capsule 12-03 00:00: 06-03 00:00 :00 No [id number] 102 240mg Take 1 capsule by mouth once daily as needed for Constipati on. [facility] ferrous sulfate 325 mg (65 mg iron) tablet 12-03 00:00: 06-03 00:00 :00 No [id number] 102 325mg Take 1 tablet by mouth 2 (two) times daily. [facility] LR 1000 mL + oxytocin 20 units IV Solution 12-02 23:00: 00 12-02 23:00 :00 No at 125 mL/hr, IV Infusion, ONCE, 1 dose, Sun12/03/19 at 1800, Routine [facility] lactated ringers IV infusion 500 mL 12-02 15:30: 00 12-02 14:45 :00 No 500mL at 999 mL/hr, 500 mL, IV Infusion, ONCE, 1 dose, Sun12/03/19 at 1030, Routine [facility] lactated ringers IV infusion 500 mL 12-02 14:22: 43 12-02 15:45 :00 No 500mL at 999 mL/hr, 500 mL, IV Infusion, PRN - SEE INSTRUCTIO NS, 1 dose, Starting Sun12/03/19 at 0922, Until Discontinu ed, Routine [facility] LR 1000 mL + oxytocin 20 units IV Solution 12-02 12:53: 34 12-03 08:25 :21 No 2mU/min at 6-120 mL/hr, IV Infusion, TITRATE, Starting Sun12/03/19 at 0753, Until Kia 12/04/19 at 0325, ALYSHA [facility] vit calc,iron,f olic ( VITAMIN ORAL) 11-28 10:47: 48 Yes Take by mouth. [facility] terbutaline (BRETHINE) injection 0.25 mg 11-28 09:20: 00 11-28 09:24 :00 No .25mg 0.25 mg, Subcutaneo us, ONCE, 1 dose, 11/29/19 at 0430, Routine [facility] proMETHazin e (PHENERGAN) injection 25 mg 11-28 08:30: 00 11-28 07:34 :00 No 25mg 25 mg, Intramuscu lar, ONCE, 1 dose, 11/29/19 at 0330, Routine [facility] terbutaline (BRETHINE) injection 0.25 mg 11-28 08:00: 00 11-28 08:19 :00 No .25mg 0.25 mg, Subcutaneo us, ONCE, 1 dose, 11/29/19 at 0300, Routine [facility] terbutaline (BRETHINE) injection 0.25 mg 11-28 07:30: 00 11-28 07:33 :00 No .25mg 0.25 mg, Subcutaneo us, ONCE, 1 dose, 11/29/19 at 0230, Routine [facility] meperidine (DEMEROL) injection 50 mg 11-28 07:30: 00 11-28 07:40 :00 No 50mg 50 mg, Intramuscu lar, ONCE, 1 dose, 11/29/19 at 0230, Routine
Enter indication for use: [facility] vit calc,iron,f olic ( VITAMIN ORAL) 10-12 16:14: 50 Yes Take by mouth. [facility] proMETHazin e 25 mg tablet 2018-06 0 00:00: 00 12-03 00:00 :00 No [id number] 25mg Take 1 tablet by mouth every 6 (six) hours as needed for Nausea and Vomiting (N/V). [facility] NAPROXEN 375 mg tablet 2017-06 00:00: 00 Yes TAKE 1 TABLET BY MOUTH TWICE A DAY WITH MEALS [facility] Immunizations Ordered Immunization Name Filled Immunization Name Date Status Comments Source HPV9 2024-03-27 00:00:00 Completed HPV9 2023-10-31 00:00:00 Completed HPV9 2023-09-26 00:00:00 Completed TDAP (ADACEL) VACCINE 2019-09-30 00:00:00 Completed [facility] TDAP (ADACEL) VACCINE 2019-09-30 00:00:00 Completed [facility] TDAP (ADACEL) VACCINE 2019-09-30 00:00:00 Completed [facility] TDAP (ADACEL) VACCINE 2019-09-30 00:00:00 Completed [facility] TDAP (ADACEL) VACCINE 2019-09-30 00:00:00 Completed [facility] TDAP (ADACEL) VACCINE 2019-09-30 00:00:00 Completed [facility] TDAP (ADACEL) VACCINE 2019-09-30 00:00:00 Completed [facility] TDAP (ADACEL) VACCINE 2019-09-30 00:00:00 Completed [facility] TDAP (ADACEL) VACCINE 2019-09-30 00:00:00 Completed [facility] TDAP (ADACEL) VACCINE 2019-09-30 00:00:00 Completed [facility] TDAP (ADACEL) VACCINE 2019-09-30 00:00:00 Completed [facility] TDAP (ADACEL) VACCINE 2019-09-30 00:00:00 Completed [facility] TDAP (ADACEL) VACCINE 2019-09-30 00:00:00 Completed [facility] TDAP (ADACEL) VACCINE 2019-09-30 00:00:00 Completed [facility] TDAP (ADACEL) VACCINE 2019-09-30 00:00:00 Completed [facility] TDAP (ADACEL) VACCINE 2019-09-30 00:00:00 Completed [facility] Influenza Virus Vaccine Quad .5 mL IM 6+ MO 2019-04-23 00:00:00 Completed [facility] Influenza Virus Vaccine Quad .5 mL IM 6+ MO 2019-04-23 00:00:00 Completed [facility] Influenza Virus Vaccine Quad .5 mL IM 6+ MO 2019-04-23 00:00:00 Completed [facility] Influenza Virus Vaccine Quad .5 mL IM 6+ MO 2019-04-23 00:00:00 Completed [facility] Influenza Virus Vaccine Quad .5 mL IM 6+ MO 2019-04-23 00:00:00 Completed [facility] Influenza Virus Vaccine Quad .5 mL IM 6+ MO 2019-04-23 00:00:00 Completed [facility] Influenza Virus Vaccine Quad .5 mL IM 6+ MO 2019-04-23 00:00:00 Completed [facility] Influenza Virus Vaccine Quad .5 mL IM 6+ MO 2019-04-23 00:00:00 Completed [facility] Influenza Virus Vaccine Quad .5 mL IM 6+ MO 2019-04-23 00:00:00 Completed [facility] Influenza Virus Vaccine Quad .5 mL IM 6+ MO 2019-04-23 00:00:00 Completed [facility] Influenza Virus Vaccine Quad .5 mL IM 6+ MO 2019-04-23 00:00:00 Completed [facility] Influenza Virus Vaccine Quad .5 mL IM 6+ MO 2019-04-23 00:00:00 Completed [facility] Influenza Virus Vaccine Quad .5 mL IM 6+ MO 2019-04-23 00:00:00 Completed [facility] Influenza Virus Vaccine Quad .5 mL IM 6+ MO 2019-04-23 00:00:00 Completed [facility] Influenza Virus Vaccine Quad .5 mL IM 6+ MO 2019-04-23 00:00:00 Completed [facility] Influenza Virus Vaccine Quad .5 mL IM 6+ MO 2019-04-23 00:00:00 Completed [facility] Influenza Virus Vaccine Quad .5 mL IM 6+ MO 2019-04-23 00:00:00 Completed [facility] Influenza Virus Vaccine Quad .5 mL IM 6+ MO (FLUZONE/FLULAVAL/F LUARIX) 2019-04-23 00:00:00 Completed [facility] Influenza Virus Vaccine Quad .5 mL IM 6+ MO 2019-04-23 00:00:00 Completed [facility] Influenza Virus Vaccine Quad .5 mL IM 6+ MO 2019-04-23 00:00:00 Completed [facility] Influenza Virus Vaccine Quad .5 mL IM 6+ MO 2019-04-23 00:00:00 Completed [facility] Influenza Virus Vaccine Quad .5 mL IM 6+ MO 2019-04-23 00:00:00 Completed [facility] Influenza Virus Vaccine Quad .5 mL IM 6+ MO 2019-04-23 00:00:00 Completed [facility] Influenza Virus Vaccine Quad .5 mL IM 6+ MO (FLUZONE/FLULAVAL/F LUARIX) Unknown Completed [facility] TDAP (ADACEL) VACCINE Unknown Completed [facility] HPV9 Unknown Completed [facility] Influenza Virus Vaccine Quad .5 mL IM 6+ MO (FLUZONE/FLULAVAL/F LUARIX) Unknown Completed [facility] TDAP (ADACEL) VACCINE Unknown Completed [facility] HPV9 Unknown Completed [facility] Influenza Virus Vaccine Quad .5 mL IM 6+ MO (FLUZONE/FLULAVAL/F LUARIX) Unknown Completed [facility] TDAP (ADACEL) VACCINE Unknown Completed [facility] HPV9 Unknown Completed [facility] Influenza Virus Vaccine Quad .5 mL IM 6+ MO (FLUZONE/FLULAVAL/F LUARIX) Unknown Completed [facility] TDAP (ADACEL) VACCINE Unknown Completed [facility] HPV9 Unknown Completed [facility] Vital Signs Vital Name Observation Time Observation Value Comments S ource Systolic blood pressure 2024-03-27 14:26:00 123 mm[Hg] [facility] Diastolic blood pressure 2024-03-27 14:26:00 67 mm[Hg] [facility] Heart rate 2024-03-27 14:26:00 60 /min [facility] Body temperature 2024-03-27 14:26:00 36.83 Rachna [facility] Body weight 2024-03-27 14:26:00 63.05 kg [facility] Systolic blood pressure 2023-12-26 14:18:00 111 mm[Hg] [facility] Diastolic blood pressure 2023-12-26 14:18:00 71 mm[Hg] [facility] Heart rate 2023-12-26 14:18:00 82 /min [facility] Body temperature 2023-12-26 14:18:00 37.33 Rachna [facility] Respiratory rate 2023-12-26 14:18:00 18 /min [facility] Body height 2023-12-26 14:18:00 160 cm [facility] Body weight 2023-12-26 14:18:00 59.24 kg [facility] BMI 2023-12-26 14:18:00 23.13 kg/m2 [facility] Body temperature 2023-10-31 13:41:00 37.22 Rachna [facility] Systolic blood pressure 2023-10-04 15:05:00 111 mm[Hg] [facility] Diastolic blood pressure 2023-10-04 15:05:00 81 mm[Hg] [facility] Heart rate 2023-10-04 15:05:00 74 /min [facility] Body temperature 2023-10-04 15:05:00 36.39 Rachna [facility] Respiratory rate 2023-10-04 15:05:00 18 /min [facility] Body height 2023-10-04 15:05:00 160 cm [facility] Body weight 2023-10-04 15:05:00 57.607 kg [facility] BMI 2023-10-04 15:05:00 22.50 kg/m2 [facility] Systolic blood pressure 2023-09-26 13:24:00 99 mm[Hg] [facility] Diastolic blood pressure 2023-09-26 13:24:00 72 mm[Hg] [facility] Heart rate 2023-09-26 13:24:00 79 /min [facility] Body temperature 2023-09-26 13:24:00 36.22 Rachna [facility] Respiratory rate 2023-09-26 13:24:00 18 /min [facility] Body height 2023-09-26 13:24:00 160 cm [facility] Body weight 2023-09-26 13:24:00 56.155 kg [facility] BMI 2023-09-26 13:24:00 21.93 kg/m2 [facility] Systolic blood pressure 2020-06-03 21:31:00 118 mm[Hg] [facility] Diastolic blood pressure 2020-06-03 21:31:00 67 mm[Hg] [facility] Heart rate 2020-06-03 21:31:00 101 /min [facility] Body temperature 2020-06-03 21:31:00 36.83 Rachna [facility] Respiratory rate 2020-06-03 21:31:00 16 /min [facility] Body height 2020-06-03 21:31:00 160 cm [facility] Body weight 2020-06-03 21:31:00 60.691 kg [facility] BMI 2020-06-03 21:31:00 23.70 kg/m2 [facility] Heart rate 2019-12-05 13:00:00 57 /min [facility] Body temperature 2019-12-05 13:00:00 36.72 Rachna [facility] Respiratory rate 2019-12-05 13:00:00 16 /min [facility] Oxygen saturation in Arterial blood by Pulse oximetry 2019-12-05 13:00:00 100 /min [facility] Systolic blood pressure 2019-12-05 05:00:00 106 mm[Hg] [facility] Diastolic blood pressure 2019-12-05 05:00:00 60 mm[Hg] [facility] Body height 2019-12-03 10:45:00 160 cm [facility] Body weight 2019-12-03 10:45:00 68.493 kg [facility] BMI 2019-12-03 10:45:00 26.75 kg/m2 [facility] Heart rate 2019-11-29 10:15:00 105 /min [facility] Systolic blood pressure 2019-11-29 10:00:00 118 mm[Hg] [facility] Diastolic blood pressure 2019-11-29 10:00:00 62 mm[Hg] [facility] Oxygen saturation in Arterial blood by Pulse oximetry 2019-11-29 09:45:00 100 /min [facility] Body temperature 2019-11-29 07:04:00 36.67 Rachna [facility] Respiratory rate 2019-11-29 07:04:00 18 /min [facility] Body height 2019-11-29 07:04:00 160 cm [facility] Body weight 2019-11-29 07:04:00 68.402 kg [facility] BMI 2019-11-29 07:04:00 26.71 kg/m2 [facility] Systolic blood pressure 2019-11-20 16:30:00 111 mm[Hg] [facility] Diastolic blood pressure 2019-11-20 16:30:00 62 mm[Hg] [facility] Heart rate 2019-11-20 16:30:00 99 /min [facility] Body temperature 2019-11-20 16:30:00 36.72 Rachna [facility] Respiratory rate 2019-11-20 16:30:00 18 /min [facility] Body height 2019-11-20 16:30:00 160 cm [facility] Body weight 2019-11-20 16:30:00 66.679 kg [facility] BMI 2019-11-20 16:30:00 26.04 kg/m2 [facility] Systolic blood pressure 2019-10-13 16:11:00 107 mm[Hg] [facility] Diastolic blood pressure 2019-10-13 16:11:00 68 mm[Hg] [facility] Heart rate 2019-10-13 16:11:00 81 /min [facility] Body temperature 2019-10-13 16:11:00 36.89 Rachna [facility] Respiratory rate 2019-10-13 16:11:00 18 /min [facility] Body height 2019-10-13 16:11:00 160 cm [facility] Body weight 2019-10-13 16:11:00 63.957 kg [facility] BMI 2019-10-13 16:11:00 24.98 kg/m2 [facility] Systolic blood pressure 2019-09-30 15:58:00 98 mm[Hg] [facility] Diastolic blood pressure 2019-09-30 15:58:00 65 mm[Hg] [facility] Heart rate 2019-09-30 15:58:00 80 /min [facility] Body temperature 2019-09-30 15:58:00 36.44 Rachna [facility] Respiratory rate 2019-09-30 15:58:00 16 /min [facility] Body height 2019-09-30 15:58:00 160 cm [facility] Body weight 2019-09-30 15:58:00 63.107 kg [facility] BMI 2019-09-30 15:58:00 24.64 kg/m2 [facility] Systolic blood pressure 2019-09-16 15:53:00 129 mm[Hg] [facility] Diastolic blood pressure 2019-09-16 15:53:00 67 mm[Hg] [facility] Heart rate 2019-09-16 15:53:00 76 /min [facility] Body temperature 2019-09-16 15:53:00 36.5 Rachna [facility] Respiratory rate 2019-09-16 15:53:00 16 /min [facility] Body height 2019-09-16 15:53:00 160 cm [facility] Body weight 2019-09-16 15:53:00 63.22 kg [facility] BMI 2019-09-16 15:53:00 24.69 kg/m2 [facility] Systolic blood pressure 2019-08-26 17:00:00 114 mm[Hg] [facility] Diastolic blood pressure 2019-08-26 17:00:00 59 mm[Hg] [facility] [facility] Heart rate 2019-08-26 17:00:00 107 /min [facility] Body temperature 2019-08-26 17:00:00 36.28 Rachna [facility] Respiratory rate 2019-08-26 17:00:00 16 /min [facility] Body height 2019-08-26 17:00:00 160 cm [facility] Body weight 2019-08-26 17:00:00 59.194 kg [facility] BMI 2019-08-26 17:00:00 23.12 kg/m2 [facility] Systolic blood pressure 2019-07-29 22:01:00 102 mm[Hg] [facility] Diastolic blood pressure 2019-07-29 22:01:00 64 mm[Hg] [facility] Heart rate 2019-07-29 22:01:00 73 /min [facility] Body temperature 2019-07-29 22:01:00 36.17 Rachna [facility] Respiratory rate 2019-07-29 22:01:00 16 /min [facility] Body height 2019-07-29 22:01:00 160 cm [facility] Body weight 2019-07-29 22:01:00 58.684 kg [facility] BMI 2019-07-29 22:01:00 22.92 kg/m2 [facility] Procedures Procedure Date / Time Performed Performing Clinician Source GARDASIL 9 (HPV 9V) VACCINE 2024-03-27 14:30:10 Kiley Dyson [facility] GARDASIL 9 (HPV 9V) VACCINE 2023-10-31 13:41:42 Kiley Dyson [facility] POCT TEST 2023-10-04 15:37:00 Farhan Dyson [facility] GARDASIL 9 (HPV 9V) VACCINE 2023-09-26 13:37:47 Kiley Dyson [facility] POCT TEST 2023-09-26 13:29:00 Farhan Dyson [facility] POCT TEST 2020-06-03 21:22:00 Belia Oliveira [facility] ASSIGNMENT OF BENEFITS 2020-06-03 21:05:52 Docto r Unassigned, [place] [facility] CBC WITH DIFFERENTIAL 2019-12-04 09:27:00 Lissett Canales m [facility] VENOUS CORD GAS 2019-12-03 22:51:00 Canales, Lissett [facility] HB ABO GROUPING 2019-12-03 13:45:00 [facility] RHO (D) IMMUNE GLOBULIN 2019-12-03 13:45:00 Lissett Canales [facility] CBC WITH DIFFERENTIAL 2019-12-03 13:38:00 Lissett Canales m [facility] HEPATITIS B SURFACE ANTIGEN 2019-12-03 13:38:00 Lissett Canales [facility] ADC OR AFSHAN ONLY - RPR 2019-12-03 13:38:00 Lissett Canales [facility] HIV 1/2 AG-AB WITH REFLEX 2019-12-03 13:38:00 Lissett Canales [facility] ASSIGNMENT OF BENEFITS 2019-12-03 10:27:24 Docto r Unassigned, [place] [facility] NOTICE OF PRIVACY PRACTICES 2019-12-03 10:23:31 Doctor Unassigned, [place] [facility] CONSENT/REFUSAL FOR DIAGNOSIS AND TREATMENT 2019-12-03 10:23:16 Doctor Unassigned, [place] [facility] ASSIGNMENT OF BENEFITS 2019-11-29 06:47:19 Docto r Unassigned, [place] [facility] CONSENT/REFUSAL FOR DIAGNOSIS AND TREATMENT 2019-11-29 06:47:04 Doctor Unassigned, [place] [facility] NOTICE OF PRIVACY PRACTICES 2019-11-29 06:46:46 Doctor Unassigned, [place] [facility] DME/SUPPLY JUSTIFICATION 2019-11-25 05:01:00 Doc tor Unassigned, [place] [facility] POCT URINALYSIS W/O SPECIFIC GRAVITY 2019-11-20 00:00:00 Martha Borjas [facility] DME/SUPPLY JUSTIFICATION 2019-10-21 05:01:00 Doc tor Unassigned, [place] [facility] POCT URINALYSIS W/O SPECIFIC GRAVITY 2019-10-13 00:00:00 Lissett Canales [facility] TDAP (ADACEL) IMMUNIZATION 2019-09-30 16:20:58 Kiley Dyson [facility] POCT URINALYSIS 2019-09-30 16:02:00 Kiley Dyson [facility] SECOND AND THIRD TRIMESTER ULTRASOUND 2019-09-17 15:28:00 Kiley Dyson [facility] POCT URINALYSIS 2019-09-16 15:58:00 Kiley Dyson [facility] POCT URINALYSIS 2019-08-26 18:01:00 Kiley Dyson [facility] POCT URINALYSIS 2019-07-29 22:03:00 Kiley Dyson [facility] Encounters Start Date/Time End Date/Time Encounter Type Admission Type Attending [facility] Care Department Encounter ID Source 2021-04-22 00:17:49 Outpatient P [facility] YANDY [id number] [facility] 2021-04-21 23:49:08 Outpatient P [facility] YANDY [id number] [facility] 2024-04-02 08:30:00 2024-04-02 08:30:00 Outpatient R [facility] [id number] [facility] 2024-03-27 09:00:00 2024-03-27 09:37:36 Outpatient R KILEY DYSON [facility] [id number] [facility] 2024-03-27 09:00:00 2024-03-27 09:37:36 Nurse Visit Visit, Kiley Lindquist Visit, Kylee Nurse [facility] RECREATION ASSISTANT [facility] ..840.114 350.1.13.10 4.2.7.2.686 [id number] [facility] 2023-12-26 09:30:00 2023-12-26 09:30:00 Nurse Visit Visit, Elyssa Almonte [facility] RECREATION ASSISTANT [facility] ..840.114 350.1.13.10 4.2.7.2.686 [id number] [facility] 2023-12-26 09:30:00 2023-12-26 09:18:42 Outpatient R PICKELYSSA PARKER [facility] [id number] [facility] 2023-11-07 09:45:00 2023-11-07 09:45:00 Outpatient R KILEY DYSON [facility] [id number] [facility] 2023-11-07 09:45:00 2023-11-07 09:45:00 Outpatient R DAYLINSCHUYLERKALEY KILEY [facility] [id number] [facility] 2023-10-31 08:30:00 2023-10-31 08:45:00 Nurse Visit Nurse, Jose Rmchp Rgv Cprit Obgyn Kiley Dyson [facility] RECREATION ASSISTANT [facility] .2.840.114 350.1.13.10 4.2.7.2.686 [id number] [facility] 2023-10-31 08:30:00 2023-10-31 08:30:00 Outpatient R DAYLINSCHUYLERKALEY KILEY [facility] [id number] [facility] 2023-10-04 10:00:00 2023-10-04 10:51:36 Outpatient R DAYLINSCHUYLERKALEY KILEY [facility] [id number] [facility] 2023-10-04 10:00:00 2023-10-04 10:51:36 Office Visit Kiley Dyson [facility] RECREATION ASSISTANT [facility] ..840.114 350.1.13.10 4.2.7.2.686 [id number] [facility] 2023-09-27 13:30:00 2023-09-27 13:30:00 Outpatient R BELIA OLIVEIRA [facility] [id number] [facility] 2023-09-26 08:30:00 2023-09-26 09:11:17 Outpatient R VANESSA KILEY [facility] [id number] [facility] 2023-09-26 08:30:2023-09-26 09:11:17 Office Visit Kiley Dyson [facility] RECREATION ASSISTANT [facility] ..840.114 350.1.13.10 4.2.7.2.686 [id number] [facility] 2022-12-07 09:00:00 2022-12-07 09:00:00 Outpatient R SLY CISNEROS [facility] [id number] [facility] 2022-11-23 15:00:00 2022-11-23 15:00:00 Outpatient R SLY CISNEROS CHERYAL [facility] [id number] [facility] 2021-10-26 15:30:00 2021-10-26 15:30:00 Outpatient R MARTHA BORJAS [facility] [id number] [facility] 2021-09-30 15:00:00 2021-09-30 15:00:00 Outpatient R BELIA OLIVEIRA [facility] [id number] [facility] 2021-08-08 14:30:00 2021-08-08 14:30:00 Outpatient R MARTHA BORJAS [facility] [id number] [facility] 2021-04-18 15:00:00 2021-04-18 15:00:00 Outpatient R LISSETT CANALES [facility] [id number] [facility] 2021-02-16 09:30:00 2021-02-16 09:30:00 Outpatient R KILEY DYSON [facility] [id number] [facility] 2020-06-03 15:06:22 2020-06-03 16:06:02 Office Visit Belia Oliveira [facility] Jhonny Frias [facility] ..840.114 350.1.13.10 4.2.7.2.686 [id number] [facility] 2020-06-03 15:30:00 2020-06-03 15:30:00 Outpatient R BELIA OLIVEIRA [facility] [id number] [facility] 2020-06-03 00:00:00 2020-06-03 00:00:00 Orders Only Doctor Unassigned, [place] [facility] 1.2.840.114 350.1.13.10 4.2.7.2.686 [id number] [facility] 2020-06-03 00:00:00 2020-06-03 00:00:00 Letter (Out) Doctor Unassigned, [place] [facility] 1.2.840.114 350.1.13.10 4.2.7.2.686 [id number] [facility] 2019-12-03 05:24:00 2019-12-05 17:00:00 Hospital Encounter Lissett Canales [facility] 1.2840.114 350.1.13.10 4.2.7.2.686 [id number] [facility] 2019-12-04 16:00:00 2019-12-04 16:00:00 Outpatient R LISSETT CANALES [facility] [id number] [facility] 2019-11-29 01:47:00 2019-11-29 05:46:00 Hospital Encounter Darlin De Los Santos [facility] 1.840.114 350.1.13.10 4.2.7.2.686 [id number] [facility] 2019-11-29 00:00:00 2019-11-29 00:00:00 Orders Only Doctor Unassigned, [place] [facility] 1.2840.114 350.1.13.10 4.2.7.2.686 [id number] [facility] 2019-11-25 00:00:00 2019-11-25 00:00:00 Orders Only Doctor Unassigned, [place] [facility] 1.2840.114 350.1.13.10 4.2.7.2.686 [id number] [facility] 2019-11-20 11:18:15 2019-11-20 11:51:32 [facility] 1.284.114 350.1.13.10 4.2.7.2.686 [id number] [facility] 2019-11-20 11:30:00 2019-11-20 11:30:00 Outpatient R MARTHA BORJAS [facility] [id number] [facility] 2019-10-27 16:00:00 2019-10-27 16:00:00 Outpatient R MARTHA BORJAS [facility] [id number] [facility] 2019-10-27 10:06:13 2019-10-27 10:36:13 Telemedici ne Visit Martha Borjas [facility] 1.284.114 350.1.13.10 4.2.7.2.686 [id number] [facility] 2019-10-22 00:00:00 2019-10-22 00:00:00 Telephone Parker Lissett [facility] 1.84.114 350.1.13.10 4.2.7.2.686 [id number] [facility] 2019-10-21 00:00:00 2019-10-21 00:00:00 Orders Only Doctor Unassigned, [place] [facility] 1.20.114 350.1.13.10 4.2.7.2.686 [id number] [facility] 2019-10-20 00:00:00 2019-10-20 00:00:00 Telephone Lissett Canales [facility] 1.840.114 350.1.13.10 4.2.7.2.686 [id number] [facility] 2019-10-13 15:15:00 2019-10-13 15:15:00 Outpatient R KILEY DYSON [facility] [id number] [facility] 2019-10-13 13:45:00 2019-10-13 13:45:00 Outpatient R KILEY DYSON [facility] [id number] [facility] 2019-10-13 11:05:01 2019-10-13 11:24:53 Initial Visit [facility]issett [facility] 1.840.114 350.1.13.10 4.2.7.2.686 [id number] [facility] 2019-10-13 11:00:00 2019-10-13 11:00:00 Outpatient R PARKER LISSETT [facility] [id number] [facility] 2019-10-13 00:00:00 2019-10-13 00:00:00 Telephone Kiley Dyson [facility] RECREATION ASSISTANT [facility] MATER[facility] 1.84.114 350.1.13.10 4.2.7.2.686 [id number] [facility] 2019-09-30 10:46:03 2019-09-30 11:25:56 Routine Visit Kiley Dyson [facility] RECREATION ASSISTANT [facility]ER[facility] .840.114 350.1.13.10 4.2.7.2.686 [id number] [facility] 2019-09-30 10:45:00 2019-09-30 10:45:00 Outpatient R KILEY DYSON [facility] [id number] [facility] 2019-09-18 00:00:00 2019-09-18 00:00:00 Abstract Kiley Dyson [facility] RECREATION ASSISTANT [facility] .84.114 350.1.13.10 4.2.7.2.686 [id number] [facility] 2019-09-17 09:56:05 2019-09-17 10:26:05 Pet Handler Visit Ultrasound, Norman Dowling [facility] RECREATION ASSISTANT [facility] MATERNAL & CHILD [facility] 1.840.114 350.1.13.10 4.2.7.2.686 [id number] [facility] 2019-09-17 10:00:00 2019-09-17 10:00:00 Outpatient P [facility] [id number] [facility] 2019-09-16 10:44:24 2019-09-16 11:22:05 Routine Visit Kiley Dyson [facility] RECREATION ASSISTANT [facility] 1..840.114 350.1.13.10 4.2.7.2.686 [id number] [facility] 2019-09-16 10:45:00 2019-09-16 10:45:00 Outpatient R KILEY DYSON [facility] [id number] [facility] 2019-08-27 00:00:00 2019-08-27 00:00:00 Abstract Kiely Dyson [facility] RECREATION ASSISTANT [facility] MATERNAL [facility] CHILD [facility] 1.840.114 350.1.13.10 4.2.7.2.686 [id number] [facility] 2019-08-26 13:54:11 2019-08-26 14:41:10 Pet Handler Visit 1, Mickey Us Room Kiley Dyson Gay [facility] RECREATION ASSISTANT [facility] MATERNAL & CHILD [facility] 1.840.114 350.1.13.10 4.2.7.2.686 [id number] [facility] 2019-08-26 10:51:50 2019-08-26 11:16:28 Routine Visit Kiley Dyson Gay [facility] RECREATION ASSISTANT [facility] MATERNAL [facility] CHILD [facility] 1.2.840.114 350.1.13.10 4.2.7.2.686 [id number] [facility] 2019-08-26 10:45:00 2019-08-26 10:45:00 Outpatient R KILEY DYSON [facility] [id number] [facility] 2019-07-29 15:51:59 2019-07-29 16:19:18 Routine Visit Obdulio Dysonilola Darnell [facility] RECREATION ASSISTANT [facility] MATERNAL & CHILD [facility] 1.2.840.114 350.1.13.10 4.2.7.2.686 [id number] [facility] Results Test Description Test Time Test Comments Results Result Co mments Source [facility] [id number] 15:37:00* Test Item Value Reference Range Interpretation Comme nts POCT PREG (test code = 1605) Negative On board controls acceptable with C Line (test code = 3574) Yes POCT PREG LOT # (test code = 3575) POCT PREG TEST DATE ( test code = 3576) [facility] [id number] 13:29:00* Test Item Value Reference Range Interpretation Comme nts POCT PREG (test code = 1605) Negative On board controls acceptable with C Line (test code = 3574) Yes POCT PREG LOT # (test code = 3575) POCT PREG TEST DATE ( test code = 3576) [facility] [id number] 13:29:00* Test Item Value Reference Range Interpretation Comme nts POCT PREG (test code = 1605) Negative On board controls acceptable with C Line (test code = 3574) Yes POCT PREG LOT # (test code = 3575) POCT PREG TEST DATE ( test code = 3576) [facility] [id number] 21:22:00* Test Item Value Reference Range Interpretation Comme nts POCT PREG (test code = 1605) Positive On board controls acceptable with C Line (test code = 3574) Yes POCT PREG LOT # (test code = 3575) POCT PREG TEST DATE (test code = 357) DENA (test code = DENA) accurate developme nt and interpretation of all internal controlsRecent on 06/02/20 [facility] [id number] 21:22:00* Test Item Value Reference Range Interpretation Comme nts POCT PREG (test code = 1605) Positive On board controls acceptable with C Line (test code = 3574) Yes POCT PREG LOT # (test code = 3575) POCT PREG TEST DATE (test code = 357) DENA (test code = DENA) accurate developme nt and interpretation of all internal controlsRecent on 06/02/20 [facility] WITH [id number] 12:11:00* Test Item Value Reference Range Interpretation [...] 35.0 g/dL 32-36 RDW-SD (test code = 07184-0) 40.6 fL 38.5-49 RDW-CV (test code = 788-0) 12.2 % 11.5-14 PLT (test code = 777-3) See_Comment [Automated message] The system which generated this result transmitted reference range: 135 - 361 10*3/?L. The reference range was not used to interpret this result as normal/abnormal. MPV (test code = 21242-7) 11.0 fL 9.4-13.3 NRBC/100 WBC (test code = 7620798875) See_Comment [Automated message] The system which generated this result transmitted reference range: 0.0 - 10.0 /100 WBCs. The reference range was not used to interpret this result as normal/abnormal. NRBC x10^3 (test code = 9617101842) <0.01 See_Comment [Automated message] The system which generated this result transmitted reference range: 10*3/?L. The reference range was not used to interpret this result as normal/abnormal. GRAN MAT (NEUT) % (test code = 770-8) 71.2 % IMM GRAN % (test code = 9776974651) 1.10 % LYMPH % (test code = 736-9) 19.6 % MONO % (test code = 5905-5) 7.1 % EOS % (test code = 713-8) 0.8 % BASO % (test code = 706-2) 0.2 % GRAN MAT x10^3(ANC) (test code = 2931442152) 10.06 10*3/uL 1.5-10.3 IMM GRAN x10^3 (test code = 7915909737) 0.16 10*3/uL 0-0.06 H LYMPH x10^3 (test code = 731-0) 2.77 10*3/uL 0.7-7.4 MONO x10^3 (test code = 742-7) 1.01 10*3/uL 0-0.5 H EOS x10^3 (test code = 711-2) 0.12 10*3/uL 0-0.4 BASO x10^3 (test code = 704-7) 0.03 10*3/uL 0-0.1 Lab Interpretation (test code = 54937-8) [facility]normal [facility] IMMUNE [id number] 09:15:54* Test Item Value Reference Range Interpretation Comme nts RHIG CANDIDATE? (test code = 5055) No- see comment Patient is not a candidate for RhIg- Patient is Rh Positive.Performed at [facility] Laboratory Services - [facility] Blood [address] [place] [address]Dmgy Free: [phone] No. [id number] [facility] OR AFSHAN ONLY - [id number] 04:13:00* Test Item Value Reference Range Interpretation Comme nts RPR (Qualitative) (test code = 88251-5) Nonreactive Nonreactive Lab Interpretation (test cod e = 76644-7) [facility] [id number] 23:13:00* Test Item Value Reference Range Interpretation Comme nts VENOUS BASE EXCESS, CORD (test code = 1987836252) mEq/L VENOUS PH, CORD (test code = 5818947518) 7.25-7.45 VENOUS PC02, CORD (test code = 8438001515) See_Comment [Automated messa ge] The system which generated this result transmitted reference range: 27 - 49 mmHg. The reference range was not used to interpret this result as normal/abnormal. VENOUS PO2, CORD (test code = 0391818576) See_Comment [Automated me ssage] The system which generated this result transmitted reference range: 17 - 41 mmHg. The reference range was not used to interpret this result as normal/abnormal. VENOUS BICARBONATE, CORD (test code = 8726100856) See_Comment [Automated messa ge] The system which generated this result transmitted reference range: 12 - 29 mEq/L. The reference range was not used to interpret this result as normal/abnormal. [facility] [id number] 23:12:00* Test Item Value Reference Range Interpretation Comme nts BASE EXCESS, CORD (test code = 0250143971) mEq/L AC PH, CORD (BEAKER) (test code = 6611835429) 7.18-7.38 L PC02, CORD (test code = 3523608024) See_Comment [Automated messa ge] The system which generated this result transmitted reference range: 32 - 66 mmHg. The reference range was not used to interpret this result as normal/abnormal. PO2, CORD (test code = 0414095374) See_Comment H [Automated messa ge] The system which generated this result transmitted reference range: 10 - 30 mmHg. The reference range was not used to interpret this result as normal/abnormal. BICARBONATE, CORD (test code = 1753424109) See_Comment [Automated me ssage] The system which generated this result transmitted reference range: 17 - 27 mEq/L. The reference range was not used to interpret this result as normal/abnormal. Lab Interpretation (test code = 35844-7) Abnormal [facility] Surface [id number] 20:15:00 * Test Item Value Reference Range Interpretation Comme nts HBsAg Semi-Quantitative (dash t code = 5195-3) Negative Negative [facility] AG-AB WITH [id number] 15:37:00* Test Item Value Reference Range Interpretation Comme nts HIV Semi-quantitative (test code = 40408-6) Negative Negative DENA (test code = DENA) Non-reactive for HIV-1 antigen and HIV-1/HIV-2 antibodies. ?No laboratory evidence of HIV infection. ?Repeat in 2-4 weeks if acute HIV infection is suspected. [facility]neType and Screen - ONCE [id number] 15:12:43 * Test Item Value Reference Range Interpretation Comme nts ABO & RH (test code = 20) O Positive Performed at [facility] Laboratory Services - [facility] Blood [address] [place] [address] Free: [phone] No. [id number] IAT (test code = 1185) Negative Performed at [facility] Laboratory [facility] Blood [place] [address]Toll Free: [phone] No. [id number] [facility] WITH [id number] 14:18:00* Test Item Value Reference Range Interpretation [...] g/dL 32-36 H RDW-SD (test code = 23961-2) 39.8 fL 38.5-49 RDW-CV (test code = 788-0) 12.3 % 11.5-14 PLT (test code = 777-3) See_Comment [Automated Fublesa ge] The system which generated this result transmitted reference range: 135 - 361 10*3/?L. The reference range was not used to interpret this result as normal/abnormal. MPV (test code = 11553-0) 10.6 fL 9.4-13.3 NRBC/100 WBC (test code = 2777539604) See_Comment [Automated ROCKI ssage] The system which generated this result transmitted reference range: 0.0 - 10.0 /100 WBCs. The reference range was not used to interpret this result as normal/abnormal. NRBC x10^3 (test code = 3266468385) <0.01 See_Comment [Automated Fublesa ge] The system which generated this result transmitted reference range: 10*3/?L. The reference range was not used to interpret this result as normal/abnormal. GRAN MAT (NEUT) % (test code = 770-8) 67.7 % IMM GRAN % (test code = 6847601604) 2.00 % LYMPH % (test code = 736-9) 23.0 % MONO % (test code = 5905-5) 6.0 % EOS % (test code = 713-8) 0.9 % BASO % (test code = 706-2) 0.4 % GRAN MAT x10^3(ANC) (test code = 7157414744) 7.56 10*3/uL 1.5-10.3 IMM GRAN x10^3 (test code = 9801962454) 0.22 10*3/uL 0-0.06 H LYMPH x10^3 (test code = 731-0) 2.57 10*3/uL 0.7-7.4 MONO x10^3 (test code = 742-7) 0.67 10*3/uL 0-0.5 H EOS x10^3 (test code = 711-2) 0.10 10*3/uL 0-0.4 BASO x10^3 (test code = 704-7) 0.04 10*3/uL 0-0.1 Lab Interpretation (test code = 92583-0) Abnormal [facility] URINALYSIS W/O SPECIFIC [id number] 16:37:00* Test Item Value Reference Range Interpretation [...] = 3257) N/A Negative - Negati ve [facility] URINALYSIS W/O SPECIFIC [id number] 16:16:00* Test Item Value Reference Range Interpretation [...] = 3257) N/A Negative - Negati ve [facility] URINALYSIS W SPECIFIC [id number] 16:02:00* Test Item Value Reference Range Interpretation [...] POCT U APPEAR (test code = 3267) [facility] URINALYSIS W SPECIFIC [id number] 15:58:00* Test Item Value Reference Range Interpretation [...] POCT U APPEAR (test code = 3267) [facility] URINALYSIS W SPECIFIC [id number] 18:01:00* Test Item Value Reference Range Interpretation [...] POCT U APPEAR (test code = 3267) [facility] URINALYSIS W SPECIFIC [id number] 18:01:00* Test Item Value Reference Range Interpretation [...] POCT U APPEAR (test code = 3267) [facility] URINALYSIS W SPECIFIC [id number] 22:03:00* Test Item Value Reference Range Interpretation [...] POCT U APPEAR (test code = 3267) [facility]
[2024-04-25] MEDS ORDERED: NA CHLORIDE 0.9% 1,000 ML ONE (03:58)
[2024-04-25] MEDS ORDERED: ONDANSETRON 4 MG/2 ML VIAL ONE ×2 (03:58→05:00)
[2024-04-25 04:34] LABS: Specific Gravity 1.021 (1.005-1.030); Sqamous Epithelial <5 /HPF (None Seen); Urine Bacteria None Seen /HPF (<20); Urine Bilirubin NEGATIVE (Negative); Urine Blood Negative (Negative); Urine Clarity Turbid (Clear); Urine Color Yellow (Yellow); Urine Culture Reflex Order NOT NEEDED; Urine Glucose NEGATIVE (Negative); Urine Ketones 4+ (Over) (Negative); Urine Microscopic Reflex YN ORDER UMIC; Urine Mucus Slight /HPF (None Seen); Urine Nitrite NEGATIVE (Negative); Urine Protein 1+ (Negative); Urine RBC <5 /HPF (None Seen); Urine Urobilinogen 3+ (Normal); Urine WBC <5 /HPF (<5); Urine pH 6.5 (5.0-7.0)
[2024-04-25 04:35] LABS: Specific Gravity 1.021 (1.005-1.030)
[2024-04-25 04:39] LABS: Absolute Lymphocytes (CBC) 1.2 K/uL (0.7-4.9); Absolute Monocytes 0.4 K/uL (0.1-1.3); Absolute Neutrophil 2.5 K/uL (1.8-8.0); Basophils % 0.3 % (0-1.3); Hematocrit 43.4 % (36.0-45.0); Lymphocytes % 29.6 % (15.3-44.8); MCHC 34.5 g/dL (32.0-36.0); MCV 89.7 fL (80-100); MPV 9.2 fL (7.6-11.3); Monocytes % 8.6 % (3.3-12.3); Neutrophils % 61.5 % (41.7-73.7); Platelets 149 thou/uL (152-406); RBC Red Blood Cell Count 4.84 M/uL (3.86-4.86); Red Cell Distribution Width 12.5 % (12.1-15.2)
[2024-04-25 04:46] LABS: Anion Gap 13.2 mEq/L (5.0-15.0); Bilirubin Total 0.6 mg/dL (0.2-1.0); Potassium 3.2 mEq/L (3.5-5.1)
--- NOTE | 2024-04-25 04:53 | ER ---
Nurse's Notes [facility] Name: Shabnam Rodriguez Age: 19 yrs Sex: Female : 2005 Arrival Date: 04/25/2024 Time: 03:32 Bed 6 Private MD: Diagnosis: Nausea with vomiting, unspecified;Influenza B Presentation: 04/25 04:07 Chief complaint: Patient states: c/o n/v and diffuse abdominal pain but more upper al5 abdominal pain x2 days along with some cough and congestion. patient states on Sunday she started to have some fever and chills. also states her daughter has also been sick at home and tested positive for flu B. Coronavirus screen: At this time, the client does not indicate any symptoms associated with coronavirus-19. Ebola Screen: No symptoms or risks identified at this time. Initial Sepsis Screen: Does the patient meet any 2 criteria? No. Patient's initial sepsis screen is negative. Does the patient have a suspected source of infection? No. Patient's initial sepsis screen is negative. Risk Assessment: Do you want to hurt yourself or someone else? Patient reports no desire to harm self or others. Onset of symptoms was April 22, 2024. 04:07 Method Of Arrival: Ambulatory al5 04:07 Acuity: DUNCAN 3 al5 Triage Assessment: 04:09 General: Appears in no apparent distress. uncomfortable, ill, Behavior is calm, al5 cooperative. Pain: Complains of pain in abdomen Pain currently is 8 out of 10 on a pain scale. EENT: No signs and/or symptoms were reported regarding the EENT system. Neuro: Level of Consciousness is awake, alert, obeys commands, Oriented to person, place, time, situation. Cardiovascular: Capillary refill < 3 seconds Patient's skin is warm and dry. Respiratory: Airway is patent Respiratory effort is even, unlabored, Respiratory pattern is regular, symmetrical. GI: Reports lower abdominal pain, upper abdominal pain, nausea, vomiting. GI: Abdomen is flat, non-distended. : No signs and/or symptoms were reported regarding the genitourinary system. Derm: Skin is intact, is healthy with good turgor, Skin is pink, warm \T\ dry. normal. Musculoskeletal: No signs and/or symptoms reported regarding the musculoskeletal system. 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 - Infectious Disease History:: Denies. - Social history:: Smoking status: Patient denies any tobacco usage or history of. - Family history:: not pertinent. Screenin:10 [facility] ED Fall Risk Assessment (Adult) History of falling in the last 3 months, al5 including since admission No falls in past 3 months (0 pts) Confusion or Disorientation No (0 pts) Intoxicated or Sedated No (0 pts) Impaired Gait No (0 pts) Mobility Assist Device Used No (0 pt) Altered Elimination No (0 pt) Score/Fall Risk Level 0 - 2 = Low Risk Oriented to surroundings, Maintained a safe environment, Hourly rounding (assess needs \T\ fall precautionary measures) done. Abuse screen: Denies threats or abuse. Denies injuries from another. Nutritional screening: No deficits noted. Tuberculosis screening: No symptoms or risk factors identified. Assessment: 04:10 Reassessment: see triage assessment. GI: Abdomen is flat, non-distended, Reports lower al5 abdominal pain, upper abdominal pain, nausea, vomiting. 04:40 Reassessment: Patient and/or family updated on plan of care and expected duration. Pain ha1 level reassessed. notified Dr. Reece Patient states symptoms have not improved. 05:33 Reassessment: discharge pending awaiting on transportation. ha1 Vital Signs: 04:00 BP 121 / 78; Pulse 58; Resp 18; Pulse Ox 99% on R/A; al5 04:07 BP 123 / 77; Pulse 87; Resp 19; Temp 98.5; Pulse Ox 99% on R/A; Weight 60.78 kg; Height al5 5 ft. 3 in. ; Pain 8/10; 04:15 BP 116 / 75; Pulse 64; Resp 17; Pulse Ox 98% on R/A; al5 05:15 BP 108 / 65; Pulse 61; Resp 17 S; Temp 98.1(T); Pulse Ox 100% on R/A; ha1 04:07 Body Mass Index 23.74 (60.78 kg, 160.02 cm) al5 04:07 Pain Scale: Adult al5 ED Course: 03:37 Patient arrived in ED. gm2 03:41 Zain Reece MD is Attending Physician. rt 04:06 CBC with Diff Sent. ha1 04:06 CMP Sent. ha1 04:06 Lipase Sent. ha1 04:06 Test, Urine Sent. ha1 04:06 Urinalysis w/ reflexes Sent. ha1 04:07 Juhi Leavitt, MACY is Primary Nurse. al5 04:08 Triage completed. al5 04:09 Arm band placed on right wrist. Patient placed in the treatment room, on a stretcher. al5 04:11 No provider procedures requiring assistance completed. Inserted saline lock: 20 gauge al5 in right antecubital area, using aseptic technique. ,using aseptic technique. done by macy andrew Blood collected. Flushed with 10 mL NS. 04:11 Patient has correct armband on for positive identification. Bed in low position. Call al5 light in reach. Side rails up X 1. Provided Education on: plan of care. 05:37 IV discontinued, intact, bleeding controlled, No redness/swelling at site. Pressure ha1 dressing applied. Administered Medications: 04:06 Drug: Ondansetron IVP 4 mg IVP once; over 2 minutes Route: IVP; Site: right antecubital;ha1 04:22 Follow up: Response: No adverse reaction; Marked relief of symptoms; Nausea is decreasedha1 04:06 Drug: NS 0.9% IV 1000 ml IV at 1 bolus Per protocol; to be given as a bolus over 60 ha1 minutes Route: IV; Rate: 1 bolus; Site: right antecubital; 05:38 Follow up: Response: No adverse reaction; IV Status: Completed infusion; IV Intake: ha1 1000ml 05:15 Drug: Ondansetron IVP 4 mg IVP once; over 2 minutes Route: IVP; Site: right antecubital;ha1 05:38 Follow up: Response: No adverse reaction; Marked relief of symptoms ha1 05:17 Drug: Ketorolac IVP 15 mg IVP once Route: IVP; Site: right antecubital; ha1 05:38 Follow up: Response: No adverse reaction; Marked relief of symptoms ha1 05:30 Drug: Droperidol IVP 1.25 mg IVP once Route: IVP; Site: right antecubital; ha1 06:05 Follow up: Response: No adverse reaction; Marked relief of symptoms ha1 Medication: 04:11 VIS not applicable for this client. al5 Intake: 05:38 IV: 1000ml; Total: 1000ml. ha1 Outcome: 04:52 Discharge ordered by . rt 05:37 Condition: stable ha1 05:37 Discharge instructions given to patient, Instructed on discharge instructions, follow up and referral plans. no driving heavy equipment, medication usage, Demonstrated understanding of instructions, follow-up care, medications, Prescriptions given X 2, 06:19 Discharged to home ambulatory, with family, ha1 06:19 Patient left the ED. ha1 Signatures: Nilsa Bueno RN RN ha1 Zain Reece MD MD rt Latricia Salinas gm2 Juhi Leavitt RN RN al5 Corrections: (The following items were deleted from the chart) 04:10 04:07 Chief complaint: Patient states: c/o n/v and diffuse abdominal pain x2 days along al5 with some cough and congestion. patient states on Sunday she started to have some fever and chills. also states her daughter has also been sick at home and tested positive for flu B. al5 06:19 05:37 Discharge instructions given to patient, Instructed on discharge instructions, ha1 follow up and referral plans. medication usage, Demonstrated understanding of instructions, follow-up care, medications, Prescriptions given X 2, ha1 06:20 05:15 BP 108 / 65; Pulse 61bpm; Resp 17bpm; Spontaneous; Pulse Ox 100% RA; ha1 ha1
--- NOTE | 2024-04-25 04:53 | EDPHYS ---
Physician Documentation [facility] Name: Shabnam Rodriguez Age: 19 yrs Sex: Female : 2005 Arrival Date: 04/25/2024 Time: 03:32 Bed 6 Private MD: ED Physician Zain Reece HPI: 04/25 04:36 This 19 yrs old Female presents to ER via Ambulatory with complaints of Nausea/Vomiting.rt 04:38 Patient presents to the ED with about 3 days of generalized abdominal pain, nausea, rt vomiting. Patient has had positive sick contacts with flu. Denies other acute complaints at this time, symptoms are moderate in severity, no other aggravating or alleviating factors.. MANAGER RESPIRATORY CARE: 04:36 Not al5 Historical: - Allergies: 04:08 No Known Allergies; al5 - PMHx: 04:08 None; al5 - PSHx: 04:08 R wrist; al5 - Immunization history:: Adult Immunizations up to date. - Infectious Disease History:: Denies. - Social history:: Smoking status: Patient denies any tobacco usage or history of. - Family history:: not pertinent. ROS: 04:38 Constitutional: Negative for fever, chills, and weight loss, rt 04:38 Cardiovascular: Negative for chest pain, palpitations, and edema, Respiratory: Negative for shortness of breath, cough, wheezing, and pleuritic chest pain, MS/Extremity: Negative for injury and deformity, Skin: Negative for injury, rash, and discoloration, 04:38 Abdomen/GI: Positive for abdominal pain, nausea and vomiting, Exam: 04:38 Constitutional: This is a well developed, well nourished patient who is awake, alert, rt and in no acute distress. Head/Face: Normocephalic, atraumatic. Chest/axilla: Normal chest wall appearance and motion. Nontender with no deformity. No lesions are appreciated. Cardiovascular: Regular rate and rhythm with a normal S1 and S2. No gallops, murmurs, or rubs. Normal PMI, no JVD. No pulse deficits. Respiratory: Lungs have equal breath sounds bilaterally, clear to auscultation and percussion. No rales, rhonchi or wheezes noted. No increased work of breathing, no retractions or nasal flaring. Abdomen/GI: Soft, non-tender, with normal bowel sounds. No distension or tympany. No guarding or rebound. No evidence of tenderness throughout. Skin: Warm, dry with normal turgor. Normal color with no rashes, no lesions, and no evidence of cellulitis. MS/ Extremity: Pulses equal, no cyanosis. Neurovascular intact. Full, normal range of motion. Neuro: Awake and alert, GCS 15, oriented to person, place, time, and situation. Cranial nerves II-XII grossly intact. Motor strength 5/5 in all extremities. Sensory grossly intact. Cerebellar exam normal. Normal gait. Vital Signs: 04:00 BP 121 / 78; Pulse 58; Resp 18; Pulse Ox 99% on R/A; al5 04:07 BP 123 / 77; Pulse 87; Resp 19; Temp 98.5; Pulse Ox 99% on R/A; Weight 60.78 kg; Height al5 5 ft. 3 in. ; Pain 8/10; 04:15 BP 116 / 75; Pulse 64; Resp 17; Pulse Ox 98% on R/A; al5 05:15 BP 108 / 65; Pulse 61; Resp 17 S; Temp 98.1(T); Pulse Ox 100% on R/A; ha1 04:07 Body Mass Index 23.74 (60.78 kg, 160.02 cm) al5 04:07 Pain Scale: Adult al5 MDM: 03:49 Medical Screening Exam initiated rt 05:26 Differential diagnosis: Viral syndrome, gastroenteritis. Data reviewed: vital signs, rt nurses notes, lab test result(s). I considered the following discharge prescriptions or medication management in the emergency department Medications were administered in the Emergency Department. See MAR. Test considered but Not performed: CT: No focal abdominal tenderness, low suspicion for appendicitis, cholecystitis, bowel obstruction, CT scan is not indicated, suspect viral syndrome as etiology of the patient's presentation.. Counseling: I had a detailed discussion with the patient and/or guardian regarding the historical points, exam findings, and any diagnostic results supporting the discharge/admit diagnosis, lab results, the need for outpatient follow up, to return to the emergency department if symptoms worsen or persist or if there are any questions or concerns that arise at home. Response to treatment: the patient's symptoms have markedly improved after treatment. 04/25 03:55 Order name: CBC with Diff; Complete Time: 04:46 rt 04/25 03:55 Order name: CMP; Complete Time: 04:46 rt 04/25 03:55 Order name: Lipase; Complete Time: 04:46 rt 04/25 03:55 Order name: Test, Urine; Complete Time: 04:35 rt 04/25 03:55 Order name: Urinalysis w/ reflexes; Complete Time: 04:35 rt 04/25 03:55 Order name: Influenza Screen (a \T\ B); Complete Time: 04:35 rt 04/25 03:55 Order name: IV Saline Lock; Complete Time: 03:59 rt 04/25 03:55 Order name: Labs collected and sent; Complete Time: 04:06 rt Administered Medications: 04:06 Drug: Ondansetron IVP 4 mg IVP once; over 2 minutes Route: IVP; Site: right antecubital;ha1 04:22 Follow up: Response: No adverse reaction; Marked relief of symptoms; Nausea is decreasedha1 04:06 Drug: NS 0.9% IV 1000 ml IV at 1 bolus Per protocol; to be given as a bolus over 60 ha1 minutes Route: IV; Rate: 1 bolus; Site: right antecubital; 05:38 Follow up: Response: No adverse reaction; IV Status: Completed infusion; IV Intake: ha1 1000ml 05:15 Drug: Ondansetron IVP 4 mg IVP once; over 2 minutes Route: IVP; Site: right antecubital;ha1 05:38 Follow up: Response: No adverse reaction; Marked relief of symptoms ha1 05:17 Drug: Ketorolac IVP 15 mg IVP once Route: IVP; Site: right antecubital; ha1 05:38 Follow up: Response: No adverse reaction; Marked relief of symptoms ha1 05:30 Drug: Droperidol IVP 1.25 mg IVP once Route: IVP; Site: right antecubital; ha1 06:05 Follow up: Response: No adverse reaction; Marked relief of symptoms ha1 Disposition Summary: 04/25/24 04:52 Discharge Ordered Notes: Location: Home rt Problem: new rt Symptoms: have improved rt Condition: Stable rt Diagnosis - Nausea with vomiting, unspecified rt - Influenza B rt Followup: rt - With: Private Physician - When: 2 - 3 days - Reason: Discharge Instructions: - Discharge Summary Sheet rt - Influenza, Adult rt - Nausea and Vomiting, Adult rt Forms: - Medication Reconciliation Form rt - Antibiotic Education rt - Prescription Opioid Use rt - Patient Portal Instructions rt - Leadership Thank You Letter rt Prescriptions: - ondansetron 4 mg Oral Tablet,disintegrating - take 1 tablet ORAL route daily for 6 hours as needed for nausea; 15 tablet; rt Refills: 0, Product Selection Permitted - promethazine 50 mg Rectal suppository - insert 1 suppository RECTAL route every 6 hours as needed; 12 suppository; rt Refills: 0, Product Selection Permitted Signatures: Dispatcher [employer] EDNilsa Cates RN RN ha1 Zain Reece MD MD rt Juhi Leavitt RN RN al5
[2024-04-25] MEDS ORDERED: KETOROLAC 30 MG/ML INJ ONE (05:00)
[2024-04-25] MEDS ORDERED: HALOPERIDOL LACT 5 MG/ML INJ ONE (05:27)
[2024-04-25 06:34] VITALS: TEMP 98.5
[2024-04-25 06:45] VITALS: BP 108/65; O2SAT 100
== END 2024-04-25 06:19 | disposition home or self-care (01) ==
LOC: ER 03:32
DX: J10.1 Influenza due to other identified influenza virus with other respiratory manifestations (principal)
CPT/HCPCS: 36415; 80053; 81001; 81025; 83690; 85025; 87804; 96361; 96374; 96375; 99284; J1630; J2405; J7030